=== PATIENT | male | born 1950 | race Caucasian/White ===

== ENCOUNTER → 2016-07-26 | Outpatient (CLI) | payer BC ==
[~2016-07-26] MED LIST: ASCO10003 PO; CHONCAP PO; DOXA4TAB2 PO; FLUT0.15 INH; LEVO75TA5 PO; SILD100T PO; TURM1CAP4 PO
[2016-07-26 15:19] LABS: BLOOD UREA NITROGEN 27 mg/dl (7-18); BUN/CREATININE RATIO 22.7 (10-20)
== END | disposition home or self-care (01) ==
LOC: C.LAB 13:20
PROVIDERS: ATTEND Urology
DX: R97.20 Elevated prostate specific antigen [PSA] (principal)

== ENCOUNTER → 2016-12-10 | Outpatient (CLI) | payer BC ==
[2016-12-10 11:04] LABS: ALT/SGPT 23 U/L (12-78); AST/SGOT 16 U/L (15-37); BLOOD UREA NITROGEN 27 mg/dl (7-18); BUN/CREATININE RATIO 20.4 (10-20); CARBON DIOXIDE 29 mmol/L (21-32); CHLORIDE 105 mmol/L (98-107); CHOLESTEROL 160 mg/dl (0-200); GLUCOSE 93 mg/dl (70-99); POTASSIUM 4.2 mmol/L (3.5-5.1); SODIUM 141 mmol/L (136-145)
[2016-12-10 11:12] LABS: ESTIMATED AVERAGE GLUCOSE 111 mg/dl; HA1C FLAG Normal (Normal)
[2016-12-10 11:17] LABS: ALB/GLOB RATIO 1.3 (0.9-2); ALKALINE PHOSPHATASE 64 U/L (45-117); HDL CHOLESTEROL 53 mg/dl; LDL CHOLESTEROL CALCULATED 100 mg/dl; TRIGLYCERIDES 35 mg/dl (0-150); VERY LOW DENSITY LIPOPROT CALC 7 mg/dl
== END | disposition home or self-care (01) ==
LOC: C.LABBC 08:25
PROVIDERS: ATTEND Internal Medicine
DX: E03.9 Hypothyroidism, unspecified (principal); R73.9 Hyperglycemia, unspecified; Z13.6 Encounter for screening for cardiovascular disorders

== ENCOUNTER → 2016-12-14 | Outpatient (CLI) | payer BC ==
--- NOTE | 2016-12-14 11:28 | DIAGNOSTIC IMAGING REPORT ---
THYROID ULTRASOUND HISTORY: [id number] THYROID NODULES COMPARISON: Thyroid ultrasound 04/22/2015. FINDINGS: Right lobe: 4.7 x 2.1 x 1.6 cm. There are few scattered hypoechoic nodules/cysts. Dominant nodule measures 8 mm. These are not significantly changed. Left lobe: 3.9 x 1.4 x 1.2 cm. There are few tiny hypoechoic nodules, unchanged. Isthmus: 4 mm in thickness. No nodules. IMPRESSION: No change in the subcentimeter bilateral thyroid nodules with the largest on the right measuring 8 mm. Electronically signed by: Ramsey Everett M.D. 12/14/2016 11:27 AM Dictated Date/Time: 12/14/2016 11:24 AM
== END | disposition home or self-care (01) ==
LOC: C.ULTR 10:44
PROVIDERS: ATTEND Internal Medicine
DX: E04.1 Nontoxic single thyroid nodule (principal)

== ENCOUNTER → 2017-04-08 | Outpatient (CLI) | payer BC | END | disposition home or self-care (01) | LOC: C.LAB 11:57 | PROVIDERS: ATTEND Internal Medicine | DX: E03.9 Hypothyroidism, unspecified (principal) ==

== ENCOUNTER → 2017-04-27 | Outpatient (CLI) | payer BC | END | disposition home or self-care (01) | LOC: C.LAB 10:46 | PROVIDERS: ATTEND Urology | DX: N40.0 Benign prostatic hyperplasia without lower urinary tract symptoms (principal); E78.5 Hyperlipidemia, unspecified ==

== ENCOUNTER → 2017-06-02 | Outpatient (CLI) | payer BC ==
[2017-06-02 12:40] LABS: ALT/SGPT 34 U/L (12-78); BLOOD UREA NITROGEN 24 mg/dl (7-18); CALCIUM 9.2 mg/dl (8.5-10.1); CARBON DIOXIDE 29 mmol/L (21-32); CHLORIDE 103 mmol/L (98-107); CHOLESTEROL 129 mg/dl (0-200); CREATININE 1.18 mg/dl (0.60-1.40); GLUCOSE 80 mg/dl (70-99); POTASSIUM 4.3 mmol/L (3.5-5.1); SODIUM 139 mmol/L (136-145); TRIGLYCERIDES 27 mg/dl (0-150); VERY LOW DENSITY LIPOPROT CALC 5 mg/dl
[2017-06-02 12:43] LABS: ALB/GLOB RATIO 1.5 (0.9-2); ALKALINE PHOSPHATASE 68 U/L (45-117); AST/SGOT 21 U/L (15-37); HDL CHOLESTEROL 63 mg/dl; LDL CHOLESTEROL CALCULATED 61 mg/dl
[2017-06-02 12:47] LABS: THYROID STIMULATING HORMONE 0.836 uIu/ml (0.300-4.500)
== END | disposition home or self-care (01) ==
LOC: C.LAB 10:46
PROVIDERS: ATTEND Physician Assistant Medical
DX: E03.9 Hypothyroidism, unspecified (principal)

== ENCOUNTER → 2017-08-02 | Outpatient (CLI) | payer BC | END | disposition home or self-care (01) | LOC: C.RDSM 08:25 | PROVIDERS: ATTEND Orthopaedic Surgery Sports Medicine | DX: R52 Pain, unspecified (principal) ==

== ENCOUNTER → 2017-11-01 | Outpatient (CLI) | payer BC | END | disposition home or self-care (01) | LOC: C.LAB1850 09:59 | PROVIDERS: ATTEND Urology | DX: N40.0 Benign prostatic hyperplasia without lower urinary tract symptoms (principal) ==

== ENCOUNTER 2020-03-12 12:27 | Inpatient (IN) ==
[2020-03-12] MEDS ORDERED: SODIUM CHLORIDE 0.9% 1000ML 1,000 ML IV ONE ×2 (12:51→13:02)
[2020-03-12] MEDS ORDERED: CEFEPIME 2,000 MG/20 ML VIAL IV STA (13:02)
[2020-03-12] MEDS ORDERED: DAPTOMYCIN IV ONE (13:02)
[2020-03-12] MEDS ORDERED: SODIUM CHLORIDE 0.9% 1000ML 250 ML IV ONE (13:02)
--- NOTE | 2020-03-12 13:26 | XRay Report ---
XR chest 1V portable HISTORY: 69 years-old Male SEPSIS acute sepsis COMPARISON: Chest CT 08/11/2015 TECHNIQUE: Portable AP view of the chest FINDINGS: Cardiac silhouette is mildly enlarged, unchanged. Mild linear subsegmental bibasilar opacities. No pn eumothorax, pleural effusion or overt pulmonary edema. Degenerative changes of the shoulders and spin e. Mild blunting of the right costophrenic angle. IMPRESSION: Linear bibasilar opacities suggest atelectasis. No airspace consolidation typical for pne umonia. ACT 112: Negative or not required by law. The above report was generated using voice recognition software. It may contain grammatical, syntax o r spelling errors. Electronically signed by: Abiodun Villasenor M.D. 03/12/2020 1:25 PM
[2020-03-12 13:35] LABS: INR 1.2 (0.9-1.1); Partial Thromboplastin Time 28.9 Seconds (21.0-31.0); Prothrombin Time 12.6 Seconds (9.0-12.0)
[2020-03-12 13:36] LABS: Hematocrit (blood only) 31.2 % (42-52); Hemoglobin 11.2 g/dL (14.0-18.0); Mean Corpuscular Hemoglobin 29.9 pg (25-34); Mean Corpuscular Hgb Conc 35.9 g/dL (32-36); Mean Corpuscular Volume 83.4 fL (80-100); Mean Platelet Volume 9.6 fL (7.4-10.4); Platelet Count 93 K/uL (130-400); RDW Standard Deviation 39.4 fL (36.4-46.3); Red Blood Count 3.74 M/uL (4.7-6.1); White Blood Count 0.44 K/uL (4.8-10.8)
[2020-03-12 13:40] LABS: Alanine Aminotransferase 15 U/L (12-78); Albumin Level 2.8 gm/dl (3.4-5.0); Aspartate Aminotransferase 15 U/L (15-37); BUN Creatinine Ratio 15.4 (10-20); Blood Urea Nitrogen 55 mg/dl (7-18); Calcium 7.8 mg/dl (8.5-10.1); Carbon Dioxide 19 mmol/L (21-32); Chloride 93 mmol/L (98-107); Creatinine Clr Calc Pharmacy 19.5 ml/min; Est GFR (African American) 18.7; Est GFR (Non-African American) 16.1; Glucose 113 mg/dl (70-99); Magnesium 1.8 mg/dl (1.8-2.4); Potassium 4.7 mmol/L (3.5-5.1); Sodium 126 mmol/L (136-145)
[2020-03-12 13:48] LABS: Alkaline Phosphatase 60 U/L (45-117); Bilirubin,Total 0.8 mg/dl (0.2-1); Creatine Kinase 54 U/L (39-308); Creatine Kinase MB < 1.0 ng/ml (0.5-3.6); Globulin 2.9 gm/dl (2.5-4.0); Total Protein 5.7 gm/dl (6.4-8.2); Troponin I < 0.015 ng/ml (0-0.045); Uric Acid 8.2 mg/dl (2.6-7.2)
--- NOTE | 2020-03-12 15:00 | History & Physical Report ---
Date of Service March 12, 2020 Assessment & Plan (1) Sepsis: Patient admitted with severe sepsis. Patient is neutropenic Cont cefepime and dapto awaiting cultures Elevated lactic acid BP soft in the 90s despite IVF. Antibiotics given. D/W her cancer doctor's PA: ok to hold ventoclax. His WBC was in the 4 range prior and even received stimulant (2) CLL (chronic lymphocytic leukemia): F/U with Onc at [facility]. (3) Benign prostatic hyperplasia with urinary obstruction: will hold doxazosin and finasteride for now. May restart in AM. (4) Chronic obstructive pulmonary disease: Stable will monitor (5) Dyslipidemia: holding statin (6) Neutropenic fever: dvt: scd History of Present Illness Chief Complaint: fever Primary Care Provider: Cash Pride MD 69 yo with h/o CLL, and receiving treatment. complainting of fever, low enegry since Tuesday. He reports intermittent fever on Tuesday at 102F and Tuesday at 101F. He repprts both fevers subisded on their own. He also reports having not urinated since Tuesday despite drinking 56 ounces of water at minimum a day. Once his was aware that he had not urinated he was brought in to the ER. Allergies Allergy/AdvReac Type Severity Reaction Status Date / Time almond Allergy Mild dry mouth Verified 01/16/20 10:55 Home Medications Home Medications Medication Instructions Recorded Confirmed Type vitamin B complex 1 tab PO DAILY #30 tab 01/08/19 03/12/20 Rx finasteride 5 mg tablet 5 mg PO DAILY #90 tab 07/19/19 03/12/20 Rx simvastatin 10 mg tablet 10 mg PO DAILY #30 tab 12/10/19 03/12/20 Rx doxazosin 4 mg tablet 4 mg PO DAILY #90 tab 01/16/20 03/12/20 Rx venetoclax 100 mg tablet 400 mg PO DAILY 300 Days #1200 tab 01/16/20 03/12/20 Rx levothyroxine 125 mcg tablet 125 mcg PO DAILY #90 tab 02/11/20 03/12/20 Rx obinutuzumab [Gazyva] 0 mg IV Q4WK 03/12/20 03/12/20 History Past Med/Surg History Medical History Actinic keratosis Acute urinary retention Allergic rhinitis 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 Chronic obstructive pulmonary disease Disc degeneration, lumbar Dyslipidemia Elevated prostate specific antigen (PSA) Elevated PSA H/O lymphoma History of basal cell carcinoma History of SCC (squamous cell carcinoma) of skin Hyperglycemia Hypothyroidism Inhibited sexual excitement Joint pain, knee Leukocytosis Lymphadenopathy Lymphoma, small lymphocytic Multinodular thyroid Need for hepatitis C screening test Organic impotence Right inguinal hernia Seborrheic keratosis Squamous cell carcinoma Tear meniscus knee Tubular adenoma of colon Surgical History H/O inguinal hernia repair H/O right inguinal hernia repair History of cholecystectomy S/P appendectomy Family History Father Cancer Mother Heart disease Denies family history of Ovarian cancer Prostate cancer Myocardial infarction Breast cancer Colorectal cancer Social History Smoking Status: Never smoker Age Started Using Tobacco: 15; Age Quit Using Tobacco: 22; packs per day: 0.5; Cigarettes Per Day: 2-3; Number of Years Since Quit: 47; Second Hand Exposure: No; Hx Alcohol Use: Yes Alcohol type: wine Alcohol Intake Frequency Comment: Up to 1 glass of wine per day. Hx Substance Use: No Preferred Language: Mongolian Communication Ability: Effective Visual Impairment: No Limitations Hearing Ability: Normal Platform Supervisor Required: No Beliefs That Will Affect Care: None marital status: Current Living Situation: Spouse current occupational status: retired current occupation: [employer] Other Information That Helps Us Care for You: No Feels Safe at Home: Yes Safety Concerns: Feels Safe At This Time Dental Care, Regularly: Yes Physical Activity Frequency: Daily Seatbelt Use: always Review of Systems Constitutional: + fever, + sweats (tuesday night up unil the fever broke), + fatigue and + weakness Eyes: no diplopia and no discharge Ear, Nose, Mouth, Throat: no tinnitus, no dizziness, no nasal congestion and no epistaxis Respiratory: + dyspnea on exertion (mild, lasted for weeks prior); no change in sputum and no dyspnea Cardiovascular: no chest pain and no orthopnea Gastrointestinal: + change in stools (diarrhea: watery (yesterday) 4-5 times (normal is once a day)) and + diarrhea/loose stools; no nausea, no vomiting and no blood in stools Genitourinary: + decreased urination (no uine sine tuesday -tuesday) Integumentary: no acne and no rash Neurologic: no falls (but lost balance when walkin o batroom.), no paralysis and no numbness Psychiatric: no hopelessness and no change in appetite Physical Exam 2 Constitutional: WD/WN, vitals as above Eyes: PERRL, conjunctivae normal, anicteric sclerae ENMT: external ear and nose normal, oropharynx normal Neck: trachea midline, no thyromegaly Respiratory: normal respiratory effort, lungs clear to auscultation Cardiovascular: RRR, no murmur, no edema Gastrointestinal (Abdomen): normal bowel sounds, soft, nontender, no hepatosplenomegaly Musculoskeletal: no cyanosis or clubbing, extremities motor strength 5/5 Neurologic: patellar DTR's 2+ bilat, sensation intact Psychiatric: A+Ox3, euthymic affect Lymphatic: no cervical or axillary lymphadenopathy Results & Data Results & Data ([facility]) Vital Signs (Past 12 Hours) Vital Signs Temp Pulse Resp BP Pulse Ox 03/12/20 14:01 79 23 03/12/20 14:00 79 23 97/67 L 03/12/20 13:32 79 23 03/12/20 13:30 78 22 93/59 L 03/12/20 13:25 18 96 03/12/20 12:38 37.5 C 87 18 91/60 L 97 PG Care Time/CCT Total # of Minutes Spent Total Time Spent with Patient: Total time spent is greater than 50% in coordination of care (as documented) at patient's floor/unit and/or counseling patient: Coding Level of Care Code 05899 Initial Inpt Care Lvl 3 Diagnoses Sepsis A41.9 CLL (chronic lymphocytic leukemia) C91.10 Benign prostatic hyperplasia with urinary obstruction N40.1; N13.8 Chronic obstructive pulmonary disease J44.9 Dyslipidemia E78.5 Neutropenic fever D70.9; R50.81
--- NOTE | 2020-03-12 15:14 | CT Scan Report ---
CT OF THE ABDOMEN AND PELVIS WITHOUT CONTRAST CLINICAL HISTORY: Acute renal failure. COMPARISON STUDY: Right inguinal ultrasound August 04, 2015. TECHNIQUE: Axial images of the abdomen and pelvis were obtained without IV contrast. Images were revi ewed in the axial, sagittal, and coronal planes. Automated exposure control was utilized for the gabriele dy. A dose lowering technique was utilized adhering to the principles of ALARA. FINDINGS: Imaged portions of the lower chest demonstrate a small hiatal hernia. There is ascites with in the hernia sac. Small right and trace left pleural effusions are noted. No pneumatosis, free air o r portal venous gas is present. Evaluation of the abdomen and pelvis is suboptimal on this unenhanced exam. Moderate splenomegaly has developed since chest CT August 2015. There is periportal edema. T here is evidence for volume overload with mesenteric infiltration and a small amount of ascites withi n the abdomen and pelvis. No hepatic lesions identified on this unenhanced exam. Unenhanced images of the adrenal glands, pancreas and right kidney are normal. A water attenuation lesion within the left renal pelvis was partially imaged on prior chest CT. This represents a parapelvic cyst. There is mil d left collecting system dilatation. There are no ureteral calculi. Prostate is moderately enlarged. Mild bladder wall thickening is noted. Colonic diverticulosis is noted without evidence for acute div erticulitis. Note is made of numerous enlarged abdominal and pelvic lymph nodes, including mesenteric , retroperitoneal and left pelvic sidewall nodes. Index left pelvic sidewall lymph node on image 347 of 446 measures 2.3 x 1.5 cm. Index right common iliac node on image 252 measures 2.4 x 1.7 cm. Index mesenteric node on image 178 measures 2 x 1.4 cm. Or may be an additional enlarged left iliac node s hown on axial image 339, suboptimally assessed on this unenhanced exam. There is no evidence for a cristela wel obstruction. There are no suspicious osseous lesions. IMPRESSION: 1. No urinary calculi. Mild left collecting system dilatation. Left renal parapelvic cyst. Moderate e nlargement of the prostate. Mild bladder wall thickening. 2. Numerous ill-defined enlarged abdominal and pelvic lymph nodes that measure up to 2.4 x 1.7 cm. In terval development of moderate splenomegaly since prior chest CT August 11, 2015. These findings bosch se the possibility of a lymphoproliferative process such as lymphoma. 3. Evidence for volume overload with small right and trace left pleural effusions, small amount of ab dominal and pelvic ascites, periportal edema and mesenteric infiltration. 4. No bowel obstruction. Colonic diverticulosis without evidence for acute diverticulitis. ACT 112: Positive. There are findings on this exam that require communication between the performing entity and the patient following Patient Test Result Information Act ([place] Act 112) guidelines. Electronically signed by: Johann Camargo M.D. 03/12/2020 3:13 PM
[2020-03-12] MEDS ORDERED: CEFEPIME CONSULT ACTIVE PRN (15:31)
[2020-03-12] MEDS ORDERED: DAPTOmycin 450 MG in SYRINGE 0 ML IV STA (15:34)
[2020-03-12 17:41] LABS: Appearance Urine Cloudy (Clear); Bacteria Urine Automated Negative (Negative); Bilirubin Urine Negative (Negative); Blood Urine Negative (Negative); Color Urine Dark Yellow; Epithelial Cell Urine Auto >30 /lpf (0-5); Glucose Urine UA Trace (Negative); Ketones Urine Negative (Negative); Leukocyte Esterase Urine Negative (Negative); Nitrite Urine Negative (Negative); Protein Urine 2+ (Negative); RBC Urine Automated 0-4 /hpf (0-4); Specific Gravity Urine 1.018 (1.000-1.030); Urobilinogen Urine Negative (Negative)
[2020-03-12] MEDS: LACTATED RINGER'S 1,000 ML IV SCH ×2 (18:59→23:01)
--- NOTE | 2020-03-12 19:25 | Electrocardiogram Report ---
Test Reason : Blood Pressure : / mmHG Vent. Rate : 078 BPM Atrial Rate : 078 BPM P-R Int : 180 ms QRS Dur : 078 ms QT Int : 322 ms P-R-T Axes : 074 062 013 degrees QTc Int : 367 ms Normal sinus rhythm Normal ECG When compared with ECG of 27-FEB-2019 03:51, ST no longer elevated in Anterior leads Confirmed by Cash Santos ([id number]) on 03/12/2020 7:25:39 PM Referred By: ED Confirmed By:Terrell Santos
[2020-03-12 19:45] LABS: BUN Creatinine Ratio 14.9 (10-20); Creatinine Clr Calc Pharmacy 18.2 ml/min; Est GFR (African American) 17.2; Est GFR (Non-African American) 14.8; Potassium 4.1 mmol/L (3.5-5.1)
[2020-03-13] MEDS: LEVOTHYROXINE SODIUM 125 MCG TABLET PO SCH (06:31)
[2020-03-13] MEDS: VITAMIN B COMPLEX TAB PO SCH (08:12)
[2020-03-13] MEDS: LACTATED RINGER'S 1,000 ML IV SCH (08:12)
[2020-03-13 08:18] LABS: Albumin Level 2.4 gm/dl (3.4-5.0); BUN Creatinine Ratio 17.9 (10-20); Calcium 8.6 mg/dl (8.5-10.1); Creatinine Clr Calc Pharmacy 19.2 ml/min; Est GFR (African American) 18.4; Est GFR (Non-African American) 15.9
[2020-03-13 08:21] LABS: Albumin Globulin Ratio 0.8 (0.9-2); Bilirubin,Total 0.7 mg/dl (0.2-1); Total Protein 5.4 gm/dl (6.4-8.2)
[2020-03-13 08:43] LABS: Hematocrit (blood only) 31.3 % (42-52); Mean Corpuscular Hemoglobin 29.3 pg (25-34); Mean Corpuscular Hgb Conc 35.1 g/dL (32-36); Mean Corpuscular Volume 83.2 fL (80-100); Mean Platelet Volume 10.4 fL (7.4-10.4); Platelet Count 93 K/uL (130-400); RDW Coefficient of Variation 12.7 % (11.5-14.5); RDW Standard Deviation 38.9 fL (36.4-46.3); Red Blood Count 3.76 M/uL (4.7-6.1); White Blood Count 0.77 K/uL (4.8-10.8)
[2020-03-13 09:01] LABS: Eosinophils # (auto) 0.06 K/uL (0-0.5); Eosinophils % (auto) 7.8 %; Lymphocytes # (auto) 0.28 K/uL (1.2-3.4); Lymphocytes % (auto) 36.4 %; Monocytes # (auto) 0.43 K/uL (0.11-0.59); Monocytes % (auto) 55.8 %
--- NOTE | 2020-03-13 10:11 | Hospitalist Progress Note ---
Date of Service March 13, 2020 Assessment & Plan (1) Neutropenic fever: Mr. Cope is a pleasant 69 yo male who was admitted to [facility] on 03/12/20 with neutropenic fever. He is currently undergoing chemotherapy with Dr. Haider at the [facility] with [facility] in [facility]. Patient's current chemotherapy regimen is as follows -- Venclexta po daily and Gazyva infusion q4 weeks. Just prior to admission, it was noted that patient had a fever x 2 days (102.8 F on 03/11/20 and 101.2 F on 03/12/20). Pt was also experiencing urinary retention x2 days and noted that he had not urinated since the evening of 03/11. He has had diarrhea x2 days but denies persistent diarrhea. Bacteremia with neutropenic fever - Pt admitted with severe sepsis - Started on daptomycin and cefepime IV at admission - Blood cultures taken -- 2/2 positive with gram negative bacilli -- will await speciation - Daptomycin discontinued 03/13 - Will start double gram negative coverage; consulted pharmacy 03/13 -- Continue cefepime IV x14 days and ciprofloxacin 400mg IV q24h (renal dosing) - Continue CBC qAM CLL (Chronic Lymphocytic Leukemia - Discussed case with patient's oncology PA, Melonie Storm - Will hold daily Venclexta 100mg (3 tablets) po daily - Will start neupogen at 300mcg SQ daily x4 days - F/u with oncologist at [facility] - Continue CBC qAM Acute Tubular Necrosis - Cr 3.63 today - Will restart doxazosin and finasteride for hx of BPH - 500 cc bolus IVF - Continue to monitor daily BMP Hemorrhoids - Patient using witch lefty pads with minimal relief - Hydrocortisone cream prn BID ordered BPH with urinary obstruction - Will continue home doxazosin and finasteride Dyslipidemia - Will hold simvastatin 10mg po daily at this time Hypothyroidism - Continue home levothyroxine 125 mcg COPD - Patient stable - Will continue to clinically monitor DVT Prophylaxis: FEN-GI: Full diet Dispo: Medsurg Code: DNR/DNI (2) CLL (chronic lymphocytic leukemia): (3) Benign prostatic hyperplasia with urinary obstruction: (4) Chronic obstructive pulmonary disease: (5) Dyslipidemia: (6) Bacteremia: (7) Hypothyroidism: (8) Acute tubular necrosis: (9) Hemorrhoid: Admission and Anticipated Discharge Date Admission Date: March 12, 2020 Supervising Physician Co-Signing Physician Notes Patient seen and examined with PGY-1 Dr. Lazo. Agree with history, exam findings, assessment and plan of care. In brief, Mr. Cope is a 69 year old male with history of CLL (being treated by Dr. Haider at [facility]), BPH, HLD admitted with neutropenic fever. He feels weak today, but his biggest complaint is new hemorrhoids. Reports these are very painful. Denies bleeding. He has not used any topical medications for the hemorrhoid. Also notes that in the last few days, has noticed some increased pain in his mouth. Does not have a port. Gets infusions with Dr. Haider in [place]. Each infusion is accompanied by antoinette. Last infusion was 4 weeks ago. VS, labs and imaging reviewed. Nursing notes reviewed. Ill appearing, but non-toxic. Heart with regular rate and rhythm. No murmur, rub or gallop. Lungs clear to auscultation throughout all lung pryor. No wheezes, ronchi or rales. Abdomen is nondistended, nontender. Rectal internal exam deferred given neutropenic state. External hemorrhoid inflammed without thrombosis. 1. gram negative bacteremia. No central line. Blood cultures growing gram neg bacilli. Unclear source. Continue cefepime. DC dapto. Start cipro for double gram neg coverage. 2. neutropenia. ANC 0. Neupogen today then again for the next two days. Monitor ANC. 3. CLL. Follows with Dr. Haider at [facility] in [place]. Holding daily venetoclax. 4. ATN. Cr 3.84 on admission-->3.6. 500mL bolus today. Continue to monitor for Cr and eGFR improvement. Other chronic issues stable. Dispo: pending clinical improvement. Subjective Patient is a 69 yo male who is currently admitted for neutropenic fever. He reports a hx of CLL that was initially diagnosed in 2016; he has been monitored by Dr. Haider, oncologist at [facility] in [place] ([address] In November of this year, he started treatment with Gazyva (obinutuzumab) 1000mg q4 weeks; he also takes Venclexta 100mg (3 tablets) daily. Patient notes that at his last two Gazyva infusions, he has also received Neulasta due to neutropenia. Patient tells me today that his primary oncology PA (who works with Dr. Haider) is Melonie Storm -- can be reached at [phone]; his primary oncology nurse is Mirella -- [phone]. Patient reports that on Tuesday, 3 days ago, he first noted a fever at home with a temperature of 102.8 F, taken orally. He had associated sweats and chills. On Tuesday, his temperature was 101.2 F, taken orally. On Tuesday, the patient's "fever broke" but he noted to his that he had not had any urinary output since Tuesday evening. The patient's then brought the patient to [facility] for further evaluation. Patient was seen and evaluated at bedside today. He reports that he overall feels fatigued and weak. He also complains of acute rectal pain and hemorrhoids; he notes that he has a remote hx of mild hemorrhoids but this current episode is the most severe. Patient did have several episodes of diarrhea x 2 days but he denies known rectal bleeding or blood in the stool; he has not had persistent diarrhea today. Patient has been tolerating food intake well without nausea or vomiting. He denies persistent fever, chills, or sweats. He also denies chest pain, SOB, abdominal pain, leg pain, or leg swelling. History: PMHx includes: CLL, hypothyroidism, BPH, hyperlipidemia, hernia; no hx of HTN, no hx of DM, no hx of CAD Surgical hx: cholecystectomy and appendectomy both ~40 years ago, multiple hernia repairs Allergies: NKDA Medications: Venclexta daily, Gazyva q4 weeks Review of Systems Constitutional: as per Subjective / HPI; no fever and no chills Respiratory: no cough and no dyspnea Cardiovascular: no chest pain Gastrointestinal: as per Subjective / HPI; no abdominal pain, no nausea and no vomiting Musculoskeletal: no swelling Physical Exam Physical Exam: GENERAL: No acute distress. Well developed and well nourished. Vital signs reviewed as above. A/O x3. EYES: EOMI. HENT: Moist mucous membranes. RESPIRATORY: Clear to auscultation bilaterally. No wheezing, rales, or rhonchi. CARDIOVASCULAR: Regular rate and rhythm. No murmurs. ABDOMEN: Soft, non-tender and non-distended. No palpable masses. Normal bowel sounds. RECTAL: Inflamed and erythematous external hemorrhoids without active bleeding. Digital rectal exam deferred due to neutropenic bacteremic state. EXTREMITIES: No edema. Non-tender. NEUROLOGIC: No focal neurological deficits. CN II-XII grossly intact, but not individually tested. PSYCHIATRIC: Cooperative. Appropriate mood and affect. Results & Data Results & Data ([facility]) Vital Signs (Past 12 Hours) Vital Signs Temp Pulse Pulse Pulse Resp BP Pulse Ox 03/13/20 07:37 76 03/13/20 07:04 36.6 C 80 18 104/69 96 03/13/20 03:33 36.5 C 81 16 109/71 99 03/12/20 23:59 88 03/12/20 23:45 36.4 C L 85 18 108/73 97
[2020-03-13] MEDS ORDERED: HYDROCORTISONE HC 2.5% CRM 30GM TUBE EXT PRN ×2 (11:22→12:09)
[2020-03-13] MEDS ORDERED: ACETAMINOPHEN 325 MG TAB PO PRN (11:49)
[2020-03-13] MEDS: CEFEPIME 2,000 MG in SYRINGE 7.5 ML IV SCH (13:03)
[2020-03-13] MEDS ORDERED: [UNRECOGNIZED DRUG - REMARK] PRN (13:10)
[2020-03-13] MEDS: CIPROFLOXACIN / D5W 400 MG/200 ML BAG IV SCH (13:30)
[2020-03-13] MEDS ORDERED: LACTATED RINGER'S 500 ML IV ONE (15:48)
[2020-03-13] MEDS: FILGRASTIM 300 MCG/ML VIAL SQ SCH (17:47)
[2020-03-13] MEDS: DOXAZosin MESYLATE 4 MG TAB PO SCH (20:38)
[2020-03-14] MEDS: LEVOTHYROXINE SODIUM 125 MCG TABLET PO SCH (06:15)
[2020-03-14] MEDS ORDERED: LEVOTHYROXINE SODIUM 125 MCG TABLET PO SCH (06:30)
[2020-03-14 07:27] LABS: Hematocrit (blood only) 29.3 % (42-52); Hemoglobin 10.3 g/dL (14.0-18.0); Mean Corpuscular Hemoglobin 29.3 pg (25-34); Mean Corpuscular Hgb Conc 35.2 g/dL (32-36); Mean Corpuscular Volume 83.5 fL (80-100); Mean Platelet Volume 10.4 fL (7.4-10.4); Platelet Count 112 K/uL (130-400); Red Blood Count 3.51 M/uL (4.7-6.1); White Blood Count 1.16 K/uL (4.8-10.8)
[2020-03-14 07:54] LABS: BUN Creatinine Ratio 21.7 (10-20); Calcium 8.5 mg/dl (8.5-10.1); Creatinine Clr Calc Pharmacy 23.3 ml/min; Est GFR (African American) 23.2; Est GFR (Non-African American) 20.1; Magnesium 2.3 mg/dl (1.8-2.4); Phosphorus 3.5 mg/dl (2.5-4.9); Potassium 3.3 mmol/L (3.5-5.1)
[2020-03-14] MEDS ORDERED: POTASSIUM CHLORIDE CRTAB 20 MEQ TABCR PO STA (07:59)
[2020-03-14 08:02] LABS: Eosinophils # (auto) 0.06 K/uL (0-0.5); Eosinophils % (auto) 5.2 %; Lymphocytes # (auto) 0.29 K/uL (1.2-3.4); Monocytes # (auto) 0.77 K/uL (0.11-0.59); Monocytes % (auto) 66.4 %; Neutrophils # (auto) 0.04 K/uL (1.4-6.5); Neutrophils % (auto) 3.4 %
[2020-03-14] MEDS: FINASTERIDE 5 MG TAB PO SCH (08:04)
[2020-03-14] MEDS: VITAMIN B COMPLEX TAB PO SCH (08:04)
[2020-03-14] MEDS: FILGRASTIM 300 MCG/ML VIAL SQ SCH (09:39)
--- NOTE | 2020-03-14 10:36 | Hospitalist Progress Note ---
Date of Service March 14, 2020 Assessment & Plan (1) Neutropenic fever: Mr. Cope is a pleasant 69 yo male who was admitted to [facility] on 03/12/20 with neutropenic fever. He is currently undergoing chemotherapy with Dr. Haider at the [facility] in [facility]. Patient's current chemotherapy regimen is as follows -- Venclexta po daily and Gazyva infusion q4 weeks. Just prior to admission, it was noted that patient had a fever x 2 days (102.8 F on 03/11/20 and 101.2 F on 03/12/20). Pt was also experiencing urinary retention x2 days and noted that he had not urinated since the evening of 03/11. He has had diarrhea x2 days but denies persistent diarrhea. Bacteremia with neutropenic fever - Pt admitted with severe sepsis - No clear source; no central line, no mediport - Started on daptomycin and cefepime IV at admission - Blood cultures taken -- 2/2 positive with gram negative bacilli -- will await speciation and sensitivities - Daptomycin discontinued 03/13 - Will start double gram negative coverage; consulted pharmacy 03/13 - Continue cefepime IV x14 days and ciprofloxacin 400mg IV q24h (renal dosing) - Continue CBC qAM Mouth Ulcers - Recommended that patient gargle with salt water - Viscous lidocaine ordered prn - Will continue to monitor CLL (Chronic Lymphocytic Leukemia - Discussed case with patient's oncology PA, Melonie Storm, on 03/13 - Will hold daily Venclexta 100mg (3 tablets) po daily - Will start neupogen at 300mcg SQ daily x4 days - F/u with oncologist at [facility] - Continue CBC qAM Acute Tubular Necrosis - Cr 2.99 today <-- 3.63 yesterday (03/13) <-- 3.84 (03/12) - 500 cc bolus IVF given 03/13 - Encourage increased fluid intake po for adequate hydration - Continue to monitor daily BMP Hemorrhoids - Patient using witch lefty pads with minimal relief - Hydrocortisone cream prn BID ordered - Will start patient on Colace and Miralax for bowel regimen BPH with urinary obstruction - Will continue home doxazosin and finasteride Dyslipidemia - Will hold simvastatin 10mg po daily at this time Hypothyroidism - Continue home levothyroxine 125 mcg COPD - Patient stable - Will continue to clinically monitor DVT Prophylaxis: FEN-GI: Full diet Dispo: Medsur Code: DNR/DNI (2) CLL (chronic lymphocytic leukemia): (3) Benign prostatic hyperplasia with urinary obstruction: (4) Chronic obstructive pulmonary disease: (5) Dyslipidemia: (6) Bacteremia: (7) Hypothyroidism: (8) Acute tubular necrosis: (9) Hemorrhoid: Admission and Anticipated Discharge Date Admission Date: March 12, 2020 Supervising Physician Co-Signing Physician Notes Attending attestation Pt seen and examined in concert with Dr. Lazo. In agreement with the documented findings as noted in the resident documentation with any exceptions or additions as noted here. 69 y/o male h/o [facility] ([facility] BPH, HLD p/w neutropenic fever Still c/o hemorrhoid with fecal hesitancy described, as well as apthous ulcers. On examination, S1/S2 nl RRR no MCG. CTAB. Abd NT/ND BS+ve Bacteremia in the setting of neutropenia - improved ANC today - continue neupogen for 1 more day. Follow up C/S. Continue cipro/cefepime IV. CLL - holding venetoclax MARKEL w/ ATN - improving Cr today to 2.99. Encourage PO hydration Else see resident documentation as noted. Subjective Patient was seen and evaluated at bedside this morning. He states that he overall feels "okay" but he does report some generalized weakness and fatigue. Patient also complains of sores in his mouth, notably on his tongue and inner lips. His most significant complaint this morning is his known external hemorrhoids; he reports persistent rectal pain that is exacerbated with movement. Patient denies any rectal bleeding. He has not had a bowel movement since admission to the hospital but does note that he has the urge to have a BM. Patient has been using the rectal hydrocortisone cream with minimal relief. Patient denies fever, chills, chest pain, SOB, abdominal pain, nausea, vomiting, or leg pain. He has been eating well and sleeping well. Review of Systems Constitutional: + fatigue and + weakness (generalized); no fever, no chills and no body aches Ear, Nose, Mouth, Throat: + mouth lesions Respiratory: no cough and no dyspnea Cardiovascular: no chest pain Gastrointestinal: + problem reported (hemorrhoids); no abdominal pain, no vomiting and no blood in stools Physical Exam Physical Exam: GENERAL: No acute distress. Well developed and well nourished. Vital signs reviewed as above. A/O x3. EYES: EOMI. HENT: Moist mucous membranes. 3 distinct ulcerations in the mouth; one on the right lateral mid tongue, one on the upper inner lip adjacent to the central incisors, and one on the lower inner lip adjacent to the central incisors. These ulcerations are tender to palpation and are without active bleeding. RESPIRATORY: Clear to auscultation bilaterally. No wheezing, rales, or rhonchi. CARDIOVASCULAR: Regular rate and rhythm. No murmurs. ABDOMEN: Soft, non-tender and non-distended. No palpable masses. Normal bowel sounds. RECTAL: Exam deferred today. Pt reports no rectal bleeding or bleeding from the external hemorrhoids. EXTREMITIES: No edema. Non-tender. NEUROLOGIC: No focal neurological deficits. PSYCHIATRIC: Cooperative. Appropriate mood and affect. Results & Data Results & Data ([facility]) Vital Signs (Past 12 Hours) Vital Signs Temp Pulse Pulse Resp BP Pulse Ox 03/14/20 07:23 36.8 C 75 18 109/64 96 03/14/20 03:14 36.4 C L 75 18 103/64 95 03/14/20 00:07 36.5 C 78 16 109/67 96 03/13/20 23:59 98 H Laboratory Results 03/14/20 03/14/20 Range/Units 06:42 06:42 WBC 1.16 L (4.8-10.8) K/uL RBC 3.51 L (4.7-6.1) M/uL Hgb 10.3 L (14.0-18.0) g/dL Hct 29.3 L (42-52) % MCV 83.5 (80-100) fL MCH 29.3 (25-34) pg MCHC 35.2 (32-36) g/dL RDW Std Deviation 39.0 (36.4-46.3) fL RDW Coeff of Alverto 13.0 (11.5-14.5) % Plt Count 112 L (130-400) K/uL MPV 10.4 (7.4-10.4) fL Immature Gran % (Auto) 0.0 % Neut % (Auto) 3.4 % Lymph % (Auto) 25.0 % [place] % (Auto) 66.4 % Eos % (Auto) 5.2 % Baso % (Auto) 0.0 % Neut # (Auto) 0.04 L* (1.4-6.5) K/uL Lymph # (Auto) 0.29 L (1.2-3.4) K/uL [place] # (Auto) 0.77 H (0.11-0.59) K/uL Eos # (Auto) 0.06 (0-0.5) K/uL Baso # (Auto) 0.00 (0-0.2) K/uL Immature Gran # (Auto) 0.00 (0.00-0.02) K/uL Sodium 134 L (136-145) mmol/L Potassium 3.3 L D (3.5-5.1) mmol/L Chloride 102 (98-107) mmol/L Carbon Dioxide 18 L (21-32) mmol/L Anion Gap 14.0 H (3-11) BUN 65 H (7-18) mg/dl Creatinine 2.99 H D (0.6-1.4) mg/dl Est Cr Clr Drug Dosing 23.3 ml/min Est GFR ( Amer) 23.2 Est GFR (Non-Af Amer) 20.1 BUN/Creatinine Ratio 21.7 H (10-20) Glucose 80 (70-99) mg/dl Calcium 8.5 (8.5-10.1) mg/dl Phosphorus 3.5 D (2.5-4.9) mg/dl Magnesium 2.3 (1.8-2.4) mg/dl
[2020-03-14] MEDS: DOCUSATE SODIUM 100 MG CAP PO SCH ×2 (11:14→20:55)
[2020-03-14] MEDS: POLYETHYLENE (MIRALAX) 17 GM PACK PO SCH (11:14)
[2020-03-14] MEDS: CIPROFLOXACIN / D5W 400 MG/200 ML BAG IV SCH (12:10)
[2020-03-14] MEDS: LIDOCAINE HCL VISCOUS SOLN 2% 15 ML UDC MT PRN (12:11)
[2020-03-14] MEDS: CEFEPIME 2,000 MG in SYRINGE 7.5 ML IV SCH (13:33)
[2020-03-14] MEDS ORDERED: DAPTOmycin 450 MG in SYRINGE 0 ML IV SCH (14:00)
[2020-03-14] MEDS: DOXAZosin MESYLATE 4 MG TAB PO SCH (20:57)
[2020-03-15 06:11] LABS: Hematocrit (blood only) 31.1 % (42-52); Hemoglobin 10.7 g/dL (14.0-18.0); Mean Corpuscular Hgb Conc 34.4 g/dL (32-36); Mean Corpuscular Volume 84.3 fL (80-100); Platelet Count 111 K/uL (130-400); RDW Coefficient of Variation 13.1 % (11.5-14.5); RDW Standard Deviation 40.1 fL (36.4-46.3); Red Blood Count 3.69 M/uL (4.7-6.1); White Blood Count 3.41 K/uL (4.8-10.8)
--- NOTE | 2020-03-15 06:25 | Hospitalist Progress Note ---
Date of Service March 15, 2020 Assessment & Plan (1) Neutropenic fever: 69 y/o M w/ hx of CLL on chemotherapy (follows [facility]), COPD, hypothyroidism who presents w/neutropenic fever. bacteremia w/ neutropenic fever, severe sepsis on admission - Dr. Haider at the [facility] with [facility] in [facility]. Patient's current chemotherapy regimen is as follows -- Venclexta po daily and Gazyva infusion q4 weeks. Priot to admission, F x 2d (102.8 F on 03/11/20 and 101.2 F on 03/12/20). - elevated lactate 2.6 on admission - No clear source; no central line, no mediport - Started on daptomycin and cefepime IV at admission. Daptomycin discontinued 03/13 - Blood cultures taken -- 2/2 positive with gram negative bacilli -- will await speciation and sensitivities - Will start double gram negative coverage; consulted pharmacy 03/13 - plan was cefepime IV x14 days and ciprofloxacin 400mg IV q24h (renal dosing). d/c'd IV cefepime (03/15) given that BC is pansensitive pseudomonas. Will consult pharmacy regarding possible PO options. - neutrophil count uptrending. 0.0 (03/13) -> 0.04 (03/14) -> 1.87 (03/15). - received day 3 of Neupogen. will discontinue given that he is no longer in neutropenic range and considering risks/benefits of the medication. - plan is to speak w/ oncology prior to patient dispo, tentatively 03/16/20. - check AM CBC, bmp, phos CLL (Chronic Lymphocytic Leukemia - Discussed case with patient's oncology PA, Melonie Storm, on 03/13 - Will hold daily Venclexta 100mg (3 tablets) po daily - F/u with oncologist at [facility]. CBC qAM Mouth Ulcers - Recommended that patient gargle with salt water - Viscous lidocaine ordered prn, helping a lot w/ sxs Acute Tubular Necrosis - Cr 2.99 (03/14) <-- 3.63 (03/13) <-- 3.84 (03/12) - Cr 2.21 (03/15). BUN 50 - 500 cc bolus IVF given 03/13 - Encourage increased fluid intake po for adequate hydration - Continue to monitor daily BMP Hemorrhoids - Patient using witch lefty pads with minimal relief - Hydrocortisone cream prn BID ordered - Colace and Miralax for bowel regimen BPH with urinary obstruction - continue home doxazosin and finasteride Dyslipidemia - hold simvastatin 10mg po daily Hypothyroidism - continue home levothyroxine 125 mcg COPD - patient stable, continue to monitor FENGI:dialysis renal diet DVT prophylaxis:SCDs Code status: DNR/DNI Dispo: PCU tele Admission and Anticipated Discharge Date Admission Date: March 12, 2020 Supervising Physician Co-Signing Physician Notes Attending attestation Pt seen and examined in concert with Dr. Ortiz. In agreement with the documented findings as noted in the resident documentation with any exceptions or additions as noted here. 69 y/o male h/o [facility] ([facility] BPH, HLD p/w neutropenic fever Reduced hemorrhoid complaint since addition of stool softeners. Resting comfortably otherwise. on review of history, did have urinary retention for upwards of 2 days immediately prior to admission. On examination, S1/S2 nl RRR no MCG. CTAB. Abd NT/ND BS+ve. No apparent breaks in skin, rashes, areas of TTP. Hemorrhoid appears inflamed and not exquisitely TTP on evaluation. CNII-XII grossly intact. Oral apthous ulcers of the tongue and mucosa without surrounding TTP or erythema. No palpable cervical CHART COLLECTOR appreciated. Nl external ear examination without pain w/ tragus movement. Bacteremia in the setting of neutropenia - improved ANC today - completed neupogen course. Alexis sensitive pseudomonas on BCx x 2 - transition to PO double coverage in AM for likely 2 wk course. Discussed at length with patient, will d/w patient's oncologist (called and left VM with my contact info) CLL - holding venetoclax, oncology as above MARKEL w/ ATN - Continues to improve. encourage hydration. Monitor. Else see resident documentation as noted. Subjective Patient is feeling slightly better. Main complain is his hemorrhoidal pain. The cream is helping. Mouth sores still bothering him, but the mouthwash yesterday helped a lot and is due to receive another treatment later this morning. Fatigue/weakness still there, but slightly improved. Chronic diarrhea, unchanged, not worsened. Review of Systems Review of Systems: Constitutional: Denies fever, chills, ENT: Denies sore throat Cardiovascular: Denies Chest pain Respiratory: Denies shortness of breath, cough, difficulty breathing Gastrointestinal: Denies abdominal pain, nausea, vomiting, constipation Genitourinary: Denies urinary symptoms including dysuria Neurological: Denies headache, numbness, tingling, focal weakness Physical Exam Physical Exam: General: A&Ox3. NAD. Cooperative. HEENT: Atraumatic, normocephalic. Pulm: CTAB. -wheezes, -rales, -rhonchi. No respiratory distress. Cardiac: RRR, -rg. 2/6 faint systolic murmur at aortic and tricuspid regions. No LE edema. Abdominal: Nontender, nondistended, soft. Results & Data Results & Data ([facility]) Vital Signs (Past 12 Hours) Vital Signs Temp Pulse Resp BP Pulse Ox 03/15/20 03:51 36.7 C 65 16 103/61 97 03/14/20 23:01 36.7 C 71 16 115/67 97 03/14/20 19:39 37.1 C 79 20 130/76 97 Resident Activity Tracking Resident Involvement: Resident Care Provided Care Provided: Adult Hospital Medicine
[2020-03-15] MEDS: LEVOTHYROXINE SODIUM 125 MCG TABLET PO SCH (06:30)
[2020-03-15 06:45] LABS: ALC (manual) 0.44 K/uL (1.2-3.4); ANC (manual) 1.87 K/uL (1.4-6.5); Dohle Bodies 1+; Eosinophils # (manual) 0.24 K/uL (0-0.5); Lymphocytes # (manual) 0.44 K/uL (1.2-3.4); Monocytes # (manual) 0.86 K/uL (0.11-0.59); Monocytes % (manual) 25.2 %; Neutrophils # (manual) 1.87 K/uL (1.4-6.5); Neutrophils % (manual) 54.8 %; Ovalocytes 1+; Toxic Granulation 1+
[2020-03-15 06:49] LABS: BUN Creatinine Ratio 22.7 (10-20); Calcium 8.6 mg/dl (8.5-10.1); Est GFR (African American) 33.5; Est GFR (Non-African American) 28.9; Magnesium 2.4 mg/dl (1.8-2.4); Phosphorus 2.5 mg/dl (2.5-4.9); Potassium 4.1 mmol/L (3.5-5.1)
[2020-03-15] MEDS: POLYETHYLENE (MIRALAX) 17 GM PACK PO SCH (08:09)
[2020-03-15] MEDS: FINASTERIDE 5 MG TAB PO SCH (08:09)
[2020-03-15] MEDS: VITAMIN B COMPLEX TAB PO SCH (08:09)
[2020-03-15] MEDS: DOCUSATE SODIUM 100 MG CAP PO SCH ×2 (08:09→19:43)
[2020-03-15] MEDS ORDERED: CIPROFLOXACIN CONSULT ACTIVE PRN (10:30)
[2020-03-15] MEDS: FILGRASTIM 300 MCG/ML VIAL SQ SCH (11:03)
[2020-03-15] MEDS: LIDOCAINE HCL VISCOUS SOLN 2% 15 ML UDC MT PRN (11:04)
[2020-03-15] MEDS: CIPROFLOXACIN / D5W 400 MG/200 ML BAG IV SCH ×2 (12:29→23:32)
[2020-03-15] MEDS: DOXAZosin MESYLATE 4 MG TAB PO SCH (19:44)
--- NOTE | 2020-03-16 05:14 | Emergency Department Note ---
History of Present Illness General Chief complaint: Urinary Symptoms Stated complaint: HAS URINATED IN 3 DAYS, FEVER, Time Seen by Provider: 03/12/20 12:48 Source: patient, RN notes reviewed and old records reviewed Mode of arrival: ambulatory Limitations: no limitations History of Present Illness Provider complaint: weakness Onset (ago): day(s) 2 Associated symptoms: + weakness Treatments prior to arrival: none This is a 69-year-old male who is being sent by his primary care physician for [facility] test however upon arrival to the area for testing the patient is extremely weak and decided to check into the emergency department instead. He is running a fever here however denies any fever or chills. His only complaint is that he is extremely weak. He is on chemotherapy for CLL. He has not taken anything for the fever today. Home Medications Home Medications Medication Instructions Recorded Confirmed Type vitamin B complex 1 tab PO DAILY #30 tab 01/08/19 03/12/20 Rx finasteride 5 mg tablet 5 mg PO DAILY #90 tab 07/19/19 03/12/20 Rx simvastatin 10 mg tablet 10 mg PO DAILY #30 tab 12/10/19 03/12/20 Rx doxazosin 4 mg tablet 4 mg PO DAILY #90 tab 01/16/20 03/12/20 Rx venetoclax 100 mg tablet 400 mg PO DAILY 300 Days #1200 tab 01/16/20 03/12/20 Rx levothyroxine 125 mcg tablet 125 mcg PO DAILY #90 tab 02/11/20 03/12/20 Rx obinutuzumab [Gazyva] 0 mg IV Q4WK 03/12/20 03/12/20 History Allergies Allergy/AdvReac Type Severity Reaction Status Date / Time almond Allergy Mild dry mouth Verified 01/16/20 10:55 Past Med/Surg History Medical History (Updated 03/16/20 @ 05:13 by Navjot Garber MD) Actinic keratosis Acute tubular necrosis Acute urinary retention Allergic rhinitis Bacteremia 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 Chronic obstructive pulmonary disease Disc degeneration, lumbar Dyslipidemia Elevated prostate specific antigen (PSA) Elevated PSA H/O lymphoma Hemorrhoid History of basal cell carcinoma History of SCC (squamous cell carcinoma) of skin Hyperglycemia Hypothyroidism Inhibited sexual excitement Joint pain, knee Leukocytosis Lymphadenopathy Lymphoma, small lymphocytic Multinodular thyroid Need for hepatitis C screening test Organic impotence Right inguinal hernia Seborrheic keratosis Squamous cell carcinoma Tear meniscus knee Tubular adenoma of colon Surgical History H/O inguinal hernia repair H/O right inguinal hernia repair History of cholecystectomy S/P appendectomy Family History Father Cancer Mother Heart disease Denies family history of Ovarian cancer Prostate cancer Myocardial infarction Breast cancer Colorectal cancer Social History Smoking Status: Never smoker Age Started Using Tobacco: 15; Age Quit Using Tobacco: 22; packs per day: 0.5; Cigarettes Per Day: 2-3; Number of Years Since Quit: 47; Second Hand Exposure: No; Hx Alcohol Use: Yes Alcohol type: wine Alcohol Intake Frequency Comment: Up to 1 glass of wine per day. Hx Substance Use: No Preferred Language: Kiswahili Communication Ability: Effective Visual Impairment: No Limitations Hearing Ability: Normal Wirer Required: No Beliefs That Will Affect Care: None marital status: Current Living Situation: Spouse current occupational status: retired current occupation: [employer] Other Information That Helps Us Care for You: No Feels Safe at Home: Yes Safety Concerns: Feels Safe At This Time Dental Care, Regularly: Yes Physical Activity Frequency: Daily Seatbelt Use: always Review of Systems A total of 10 systems reviewed and were otherwise negative Physical Exam VITAL SIGNS - Vital signs and nursing notes were reviewed. GENERAL - 69-year-old male appearing pale stated age who is in no acute distress. Communicates well with provider and answers questions appropriately. SKIN - Without rashes. HEAD - NC/AT. EYES - PERRL with EOMI bilaterally. Sclera anicteric. Palpebral conjunctiva pink and moist with no injection noted. EARS - No deformities of external structures noted on gross examination bilaterally. No pain elicited with palpation of the tragus bilaterally. External auditory canals without discharge or otorrhea. Tympanic membranes pearly byrd without retraction or bulging. No fluid or purulent material visualized behind the TM. Handle of malleus, umbo, cone of light, pars tensa/flaccid all easily visualized. NOSE - Midline and without cyanosis. No epistaxis or purulent drainage noted. Septum midline without deviation or septal hematoma noted. MOUTH/OROPHARYNX - Without perioral cyanosis. Buccal mucosa pink and moist and without leukoplakia. Tongue midline with equal elevation of palate bilaterally. No tonsillar hypertrophy, erythema, or exudates noted. dentition noted. NECK - Neck with FROM. Supple to palpation. lymphadenopathy noted. No nuchal rigidity. LUNGS - Chest wall symmetric without accessory muscle use, intercostals retractions, or central cyanosis. Normal vesicular breath sounds CTA B/L. No wheezes, rales, or rhonchi appreciated. CARDIAC - RRR with S1/S2. No murmur, rubs, or gallops appreciated. ABDOMEN - Abdominal contour without pulsations or visible masses. BS normoactive all four quadrants. No tenderness, palpable masses, hepatosplenomegaly, or ascites noted. EXTREMITIES - No clubbing or peripheral cyanosis. No pretibial edema present. +3/5 radial, posterior tibial, and dorsalis pedis pulses palpated throughout. +5/5 strength noted in UE/LE bilaterally. NEUROLOGIC - Cranial nerves II through XII grossly intact. Sensory intact to light touch throughout. Patellar reflexes +2/4. PSYCH - A&Ox3 and cooperates fully with examiner. Pt is very pleasant and interacts well with examiner. Course Administered Medications Acetaminophen (Acetaminophen 325 Mg Tab) 650 mg PO Q4H PRN PRN Reason: pain/fever Stop: 04/12/20 11:48 Last Admin: 03/13/20 12:35 Dose: 650 mg Documented by: [id number] Docusate Sodium (Docusate Sodium 100 Mg Cap) 100 mg PO BID [facility] Stop: 04/13/20 10:29 Last Admin: 03/15/20 19:43 Dose: Not Given Documented by: [id number] Admin: 03/15/20 08:09 Dose: 100 mg Documented by: [id number] Admin: 03/14/20 20:55 Dose: Not Given Documented by: [id number] Admin: 03/14/20 11:14 Dose: 100 mg Documented by: [id number] Doxazosin Mesylate (Doxazosin Mesylate 4 Mg Tab) 4 mg PO HS MIKE Stop: 04/12/20 20:59 Last Admin: 03/15/20 19:44 Dose: 4 mg Documented by: [id number] Admin: 03/14/20 20:57 Dose: 4 mg Documented by: [id number] Admin: 03/13/20 20:38 Dose: 4 mg Documented by: [id number] Finasteride (Finasteride 5 Mg Tab) 5 mg PO QAM MIKE Stop: 04/13/20 08:59 Last Admin: 03/15/20 08:09 Dose: 5 mg Documented by: [id number] Admin: 03/14/20 08:04 Dose: 5 mg Documented by: [id number] Ciprofloxacin (Cipro / D5w) 400 mg in 200 mls @ 100 mls/hr IV Q12 MIKE; Protocol Stop: 03/29/20 22:59 Last Infusion: 03/16/20 02:20 Dose: 0 mls/hr Documented by: [id number] Admin: 03/15/20 23:32 Dose: 100 mls/hr Documented by: [id number] Levothyroxine Sodium (Levothyroxine Sodium 125 Mcg Tablet) 125 mcg PO DAILYBB [facility] Stop: 04/12/20 06:29 Last Admin: 03/15/20 06:30 Dose: 125 mcg Documented by: [id number] Admin: 03/14/20 06:15 Dose: 125 mcg Documented by: [id number] Admin: 03/13/20 06:31 Dose: 125 mcg Documented by: [id number] Lidocaine HCl (Lidocaine Hcl Viscous Soln 2% 15 Ml Udc) 15 ml MT PRN PRN PRN Reason: oral lesions Stop: 04/13/20 10:17 Last Admin: 03/15/20 11:04 Dose: 15 ml Documented by: [id number] Admin: 03/14/20 12:11 Dose: 15 ml Documented by: [id number] Polyethylene Glycol (Polyethylene (Miralax) 17 Gm Pack) 17 gm PO DAILY MIKE Stop: 04/13/20 10:29 Last Admin: 03/15/20 08:09 Dose: 17 gm Documented by: [id number] Admin: 03/14/20 11:14 Dose: 17 gm Documented by: [id number] Vitamin B Complex (Vitamin B Complex Tab) 1 tab PO DAILY MIKE Stop: 04/12/20 08:59 Last Admin: 03/15/20 08:09 Dose: 1 tab Documented by: [id number] Admin: 03/14/20 08:04 Dose: 1 tab Documented by: [id number] Admin: 03/13/20 08:12 Dose: 1 tab Documented by: [id number] Discontinued Medications Filgrastim (Filgrastim 300 Mcg/Ml Vial) 300 mcg SQ DAILY MIKE Stop: 03/16/20 15:29 Last Admin: 03/15/20 11:03 Dose: 300 mcg Documented by: [id number] Admin: 03/14/20 09:39 Dose: 300 mcg Documented by: [id number] Admin: 03/13/20 17:47 Dose: 300 mcg Documented by: [id number] Sodium Chloride (Nss 1000ml) 1,000 mls @ 999 mls/hr IV .Q1H1M ONE Stop: 03/12/20 13:51 Last Infusion: 03/12/20 14:41 Dose: 0 mls/hr Documented by: [id number] Admin: 03/12/20 13:16 Dose: 999 mls/hr Documented by: [id number] Sodium Chloride (Nss 1000ml) 250 mls @ 999 mls/hr IV .Q16M ONE Stop: 03/12/20 13:17 Last Infusion: 03/12/20 13:41 Dose: 0 mls/hr Documented by: [id number] Admin: 03/12/20 13:16 Dose: 999 mls/hr Documented by: [id number] Sodium Chloride (Nss 1000ml) 1,000 mls @ 999 mls/hr IV .Q1H1M ONE Stop: 03/12/20 14:02 Last Infusion: 03/12/20 14:41 Dose: 0 mls/hr Documented by: [id number] Admin: 03/12/20 13:16 Dose: 999 mls/hr Documented by: [id number] Cefepime HCl (Maxipime) 2,000 mg in 20 mls @ 5 mls/min IV NOW STA; Protocol Stop: 03/12/20 13:05 Last Admin: 03/12/20 14:00 Dose: 5 mls/min Documented by: [id number] Daptomycin 435 mg/ Syringe 8.7 mls @ 4.35 mls/min IV NOW ONE; Protocol Stop: 03/12/20 13:03 Last Admin: 03/12/20 14:00 Dose: 4.35 mls/min Documented by: [id number] Lactated Ringer's (Lr) 1,000 mls @ 100 mls/hr IV .Q10H MIKE Stop: 03/13/20 11:14 Last Infusion: 03/13/20 20:37 Dose: 0 mls/hr Documented by: [id number] Admin: 03/13/20 08:12 Dose: 100 mls/hr Documented by: [id number] Infusion: 03/13/20 08:12 Dose: 100 mls/hr Documented by: [id number] Admin: 03/12/20 23:01 Dose: 100 mls/hr Documented by: [id number] Admin: 03/12/20 18:59 Dose: Not Given Documented by: [id number] Daptomycin 450 mg/ Syringe 9 mls @ 4.5 mls/min IV ONE STA; Protocol Stop: 03/12/20 15:35 Last Admin: 03/12/20 15:40 Dose: Not Given Documented by: [id number] Cefepime HCl 2,000 mg/ Syringe 20 mls @ 5 mls/min IV Q24H MIKE Stop: 03/27/20 13:59 Last Admin: 03/14/20 13:33 Dose: 5 mls/min Documented by: [id number] Admin: 03/13/20 13:03 Dose: 5 mls/min Documented by: [id number] Ciprofloxacin (Cipro / D5w) 400 mg in 200 mls @ 100 mls/hr IV DAILY@1200 MIKE; Protocol Stop: 03/15/20 15:00 Last Infusion: 03/15/20 14:49 Dose: 0 mls/hr Documented by: [id number] Admin: 03/15/20 12:29 Dose: 100 mls/hr Documented by: [id number] Infusion: 03/14/20 14:38 Dose: 0 mls/hr Documented by: [id number] Admin: 03/14/20 12:10 Dose: 100 mls/hr Documented by: [id number] Infusion: 03/13/20 15:59 Dose: 0 mls/hr Documented by: [id number] Admin: 03/13/20 13:30 Dose: 100 mls/hr Documented by: [id number] Lactated Ringer's (Lr) 500 mls @ 999 mls/hr IV .Q31M ONE Stop: 03/13/20 16:18 Last Admin: 03/13/20 16:19 Dose: Not Given Documented by: [id number] Potassium Chloride (Potassium Chloride 20 Meq Tabcr) 40 meq PO NOW STA Stop: 03/14/20 08:00 Last Admin: 03/14/20 08:08 Dose: 40 meq Documented by: [id number] Critical Care Time I have personally spent greater than 90 minutes of critical care time in the direct management of this patient. This includes bedside care, interpretation of diagnostic studies, and testing, discussion with consultants, patient, and family members, and other required patient management activities. This 90 minutes is in excess of all separately billable procedures. Medical Decision Making Differential Diagnosis Sepsis, UTI, pneumonia, metabolic, electrolyte abnormalities, cardiac sources, intracerebral event, toxicologic, neurologic, as well as other pathologies. Medical Records Attestation: I reviewed the patient's medical records. Home Medications Current Medication List: was personally reviewed by me Laboratory Data Attestation: I reviewed the patient's lab results. Result diagrams: 03/15/20 05:21 03/15/20 05:21 Lab Results 03/12/20 03/12/20 03/12/20 Range/Units 13:07 13:07 13:07 WBC 0.44 L* (4.8-10.8) K/uL RBC 3.74 L (4.7-6.1) M/uL Hgb 11.2 L (14.0-18.0) g/dL Hct 31.2 L (42-52) % MCV 83.4 (80-100) fL MCH 29.9 (25-34) pg MCHC 35.9 (32-36) g/dL RDW Std Deviation 39.4 (36.4-46.3) fL RDW Coeff of Alverto 13.0 (11.5-14.5) % Plt Count 93 L (130-400) K/uL MPV 9.6 (7.4-10.4) fL Immature Gran % (Auto) Cancelled Neut % (Auto) Cancelled Lymph % (Auto) Cancelled Crisp % (Auto) Cancelled Eos % (Auto) Cancelled Baso % (Auto) Cancelled Neut # (Auto) Cancelled Lymph # (Auto) Cancelled Crisp # (Auto) Cancelled Eos # (Auto) Cancelled Baso # (Auto) Cancelled Immature Gran # (Auto) Cancelled Neutrophils % (Manual) Cancelled Band Neutrophils % Cancelled Lymphocytes % (Manual) Cancelled Prolymphocyte % Cancelled Reactive Lymphs % (Man) Cancelled Monocytes % (Manual) Cancelled Eosinophils % (Manual) Cancelled Basophils % (Manual) Cancelled Metamyelocytes % (Man) Cancelled Myelocytes % (Man) Cancelled Promyelocytes % (Man) Cancelled Blast Cells % (Manual) Cancelled Plasma Cell % (Manual) Cancelled Other Cells % Cancelled Nucleated RBC % Cancelled Neutrophils # (Manual) Cancelled Band Neutrophils # Cancelled Total Absolute Neuts Cancelled Lymphocytes # (Manual) Cancelled Prolymphocyte # Cancelled Reactive Lymphs # Cancelled Total Abs Lymphocytes Cancelled Monocytes # (Manual) Cancelled Eosinophils # (Manual) Cancelled Basophils # (Manual) Cancelled Metamyelocytes # (Man) Cancelled Myelocytes # (Manual) Cancelled Promyelocytes # (Man) Cancelled Blast Cells # (Man) Cancelled Plasma Cell # (Manual) Cancelled Other Cells # Cancelled Nucleated RBCs # (Man) Cancelled Hypersegmented Neuts Cancelled Hyposegmented Neuts Cancelled Hypogranular Neuts Cancelled Large Granular Lymphs Cancelled # Lrg Granular Lymphs Cancelled Hairy Cells Cancelled Smudge Cells Cancelled Toxic Granulation Cancelled Toxic Vacuolation Cancelled Dohle Bodies Cancelled Josie Rods Cancelled Hypogranular Platelets Cancelled Clumped Platelets Cancelled Giant Platelets Cancelled Platelet Satelliting Cancelled RBC Morphology Cancelled Polychromasia Cancelled Hypochromasia Cancelled Poikilocytosis Cancelled Basophilic Stippling Cancelled Anisocytosis Cancelled Microcytosis Cancelled Macrocytosis Cancelled Spherocytes Cancelled Pappenheimer Bodies Cancelled Sickle Cells Cancelled Target Cells Cancelled Tear Drop Cells Cancelled Ovalocytes Cancelled Stomatocytes Cancelled [place] Bodies Cancelled Echinocytes Cancelled Acanthocytes (Spur) Cancelled Rouleaux Cancelled RBC Agglutinates Cancelled Schistocytes Cancelled RBC Morph Comment Cancelled ESR (0-14) mm/hr Sezary Cell Cancelled PT 12.6 H (9.0-12.0) Seconds INR 1.2 H (0.9-1.1) APTT 28.9 (21.0-31.0) Seconds PTT Ratio 1.0 Sodium 126 L (136-145) mmol/L Potassium 4.7 (3.5-5.1) mmol/L Chloride 93 L (98-107) mmol/L Carbon Dioxide 19 L (21-32) mmol/L Anion Gap 14.0 H (3-11) BUN 55 H (7-18) mg/dl Creatinine 3.58 H (0.6-1.4) mg/dl Est Cr Clr Drug Dosing 19.5 ml/min Est GFR ( Amer) 18.7 Est GFR (Non-Af Amer) 16.1 BUN/Creatinine Ratio 15.4 (10-20) Glucose 113 H (70-99) mg/dl Lactate (0.4-2.0) mmol/L Uric Acid 8.2 H (2.6-7.2) mg/dl Calcium 7.8 L (8.5-10.1) mg/dl Phosphorus 5.0 H (2.5-4.9) mg/dl Magnesium 1.8 (1.8-2.4) mg/dl Total Bilirubin 0.8 (0.2-1) mg/dl AST 15 (15-37) U/L ALT 15 (12-78) U/L Alkaline Phosphatase 60 (45-117) U/L Lactate Dehydrogenase (87-241) U/L Total Creatine Kinase 54 (39-308) U/L CK-MB (CK-2) < 1.0 (0.5-3.6) ng/ml CK/CKMB % Calc TNP Troponin I < 0.015 (0-0.045) ng/ml C-Reactive Protein 24.50 H (0-0.29) mg/dl Total Protein 5.7 L (6.4-8.2) gm/dl Albumin 2.8 L (3.4-5.0) gm/dl Globulin 2.9 (2.5-4.0) gm/dl Albumin/Globulin Ratio 1.0 (0.9-2) Procalcitonin (0-0.5) ng/ml COVID-19 Eval Order COVID-19 PCR (Negative) Hepatitis C Ab Screen (Neg) 03/12/20 03/12/20 03/12/20 Range/Units 13:07 13:07 13:07 WBC (4.8-10.8) K/uL RBC (4.7-6.1) M/uL Hgb (14.0-18.0) g/dL Hct (42-52) % MCV (80-100) fL MCH (25-34) pg MCHC (32-36) g/dL RDW Std Deviation (36.4-46.3) fL RDW Coeff of Alverto (11.5-14.5) % Plt Count (130-400) K/uL MPV (7.4-10.4) fL Immature Gran % (Auto) Neut % (Auto) Lymph % (Auto) Crisp % (Auto) Eos % (Auto) Baso % (Auto) Neut # (Auto) Lymph # (Auto) Crisp # (Auto) Eos # (Auto) Baso # (Auto) Immature Gran # (Auto) Neutrophils % (Manual) Band Neutrophils % Lymphocytes % (Manual) Prolymphocyte % Reactive Lymphs % (Man) Monocytes % (Manual) Eosinophils % (Manual) Basophils % (Manual) Metamyelocytes % (Man) Myelocytes % (Man) Promyelocytes % (Man) Blast Cells % (Manual) Plasma Cell % (Manual) Other Cells % Nucleated RBC % Neutrophils # (Manual) Band Neutrophils # Total Absolute Neuts Lymphocytes # (Manual) Prolymphocyte # Reactive Lymphs # Total Abs Lymphocytes Monocytes # (Manual) Eosinophils # (Manual) Basophils # (Manual) Metamyelocytes # (Man) Myelocytes # (Manual) Promyelocytes # (Man) Blast Cells # (Man) Plasma Cell # (Manual) Other Cells # Nucleated RBCs # (Man) Hypersegmented Neuts Hyposegmented Neuts Hypogranular Neuts Large Granular Lymphs # Lrg Granular Lymphs Hairy Cells Smudge Cells Toxic Granulation Toxic Vacuolation Dohle Bodies Josie Rods Hypogranular Platelets Clumped Platelets Giant Platelets Platelet Satelliting RBC Morphology Polychromasia Hypochromasia Poikilocytosis Basophilic Stippling Anisocytosis Microcytosis Macrocytosis Spherocytes Pappenheimer Bodies Sickle Cells Target Cells Tear Drop Cells Ovalocytes Stomatocytes [place] Bodies Echinocytes Acanthocytes (Spur) Rouleaux RBC Agglutinates Schistocytes RBC Morph Comment ESR 20 H (0-14) mm/hr Sezary Cell PT (9.0-12.0) Seconds INR (0.9-1.1) APTT (21.0-31.0) Seconds PTT Ratio Sodium (136-145) mmol/L Potassium (3.5-5.1) mmol/L Chloride (98-107) mmol/L Carbon Dioxide (21-32) mmol/L Anion Gap (3-11) BUN (7-18) mg/dl Creatinine (0.6-1.4) mg/dl Est Cr Clr Drug Dosing ml/min Est GFR ( Amer) Est GFR (Non-Af Amer) BUN/Creatinine Ratio (10-20) Glucose (70-99) mg/dl Lactate 2.6 H* (0.4-2.0) mmol/L Uric Acid (2.6-7.2) mg/dl Calcium (8.5-10.1) mg/dl Phosphorus (2.5-4.9) mg/dl Magnesium (1.8-2.4) mg/dl Total Bilirubin (0.2-1) mg/dl AST (15-37) U/L ALT (12-78) U/L Alkaline Phosphatase (45-117) U/L Lactate Dehydrogenase (87-241) U/L Total Creatine Kinase (39-308) U/L CK-MB (CK-2) (0.5-3.6) ng/ml CK/CKMB % Calc Troponin I (0-0.045) ng/ml C-Reactive Protein (0-0.29) mg/dl Total Protein (6.4-8.2) gm/dl Albumin (3.4-5.0) gm/dl Globulin (2.5-4.0) gm/dl Albumin/Globulin Ratio (0.9-2) Procalcitonin 27.12 H (0-0.5) ng/ml COVID-19 Eval Order COVID-19 PCR (Negative) Hepatitis C Ab Screen (Neg) 03/12/20 03/12/20 03/12/20 Range/Units 13:07 13:07 13:30 WBC (4.8-10.8) K/uL RBC (4.7-6.1) M/uL Hgb (14.0-18.0) g/dL Hct (42-52) % MCV (80-100) fL MCH (25-34) pg MCHC (32-36) g/dL RDW Std Deviation (36.4-46.3) fL RDW Coeff of Alverto (11.5-14.5) % Plt Count (130-400) K/uL MPV (7.4-10.4) fL Immature Gran % (Auto) Neut % (Auto) Lymph % (Auto) Crisp % (Auto) Eos % (Auto) Baso % (Auto) Neut # (Auto) Lymph # (Auto) Crisp # (Auto) Eos # (Auto) Baso # (Auto) Immature Gran # (Auto) Neutrophils % (Manual) Band Neutrophils % Lymphocytes % (Manual) Prolymphocyte % Reactive Lymphs % (Man) Monocytes % (Manual) Eosinophils % (Manual) Basophils % (Manual) Metamyelocytes % (Man) Myelocytes % (Man) Promyelocytes % (Man) Blast Cells % (Manual) Plasma Cell % (Manual) Other Cells % Nucleated RBC % Neutrophils # (Manual) Band Neutrophils # Total Absolute Neuts Lymphocytes # (Manual) Prolymphocyte # Reactive Lymphs # Total Abs Lymphocytes Monocytes # (Manual) Eosinophils # (Manual) Basophils # (Manual) Metamyelocytes # (Man) Myelocytes # (Manual) Promyelocytes # (Man) Blast Cells # (Man) Plasma Cell # (Manual) Other Cells # Nucleated RBCs # (Man) Hypersegmented Neuts Hyposegmented Neuts Hypogranular Neuts Large Granular Lymphs # Lrg Granular Lymphs Hairy Cells Smudge Cells Toxic Granulation Toxic Vacuolation Dohle Bodies Josie Rods Hypogranular Platelets Clumped Platelets Giant Platelets Platelet Satelliting RBC Morphology Polychromasia Hypochromasia Poikilocytosis Basophilic Stippling Anisocytosis Microcytosis Macrocytosis Spherocytes Pappenheimer Bodies Sickle Cells Target Cells Tear Drop Cells Ovalocytes Stomatocytes [place] Bodies Echinocytes Acanthocytes (Spur) Rouleaux RBC Agglutinates Schistocytes RBC Morph Comment ESR (0-14) mm/hr Sezary Cell PT (9.0-12.0) Seconds INR (0.9-1.1) APTT (21.0-31.0) Seconds PTT Ratio Sodium (136-145) mmol/L Potassium (3.5-5.1) mmol/L Chloride (98-107) mmol/L Carbon Dioxide (21-32) mmol/L Anion Gap (3-11) BUN (7-18) mg/dl Creatinine (0.6-1.4) mg/dl Est Cr Clr Drug Dosing ml/min Est GFR ( Amer) Est GFR (Non-Af Amer) BUN/Creatinine Ratio (10-20) Glucose (70-99) mg/dl Lactate (0.4-2.0) mmol/L Uric Acid (2.6-7.2) mg/dl Calcium (8.5-10.1) mg/dl Phosphorus (2.5-4.9) mg/dl Magnesium (1.8-2.4) mg/dl Total Bilirubin (0.2-1) mg/dl AST (15-37) U/L ALT (12-78) U/L Alkaline Phosphatase (45-117) U/L Lactate Dehydrogenase 148 (87-241) U/L Total Creatine Kinase (39-308) U/L CK-MB (CK-2) (0.5-3.6) ng/ml CK/CKMB % Calc Troponin I (0-0.045) ng/ml C-Reactive Protein (0-0.29) mg/dl Total Protein (6.4-8.2) gm/dl Albumin (3.4-5.0) gm/dl Globulin (2.5-4.0) gm/dl Albumin/Globulin Ratio (0.9-2) Procalcitonin (0-0.5) ng/ml COVID-19 Eval Order Covid19 Done at [facility] COVID-19 PCR (Negative) Hepatitis C Ab Screen Neg (Neg) 03/12/20 03/12/20 Range/Units 13:30 15:30 WBC (4.8-10.8) K/uL RBC (4.7-6.1) M/uL Hgb (14.0-18.0) g/dL Hct (42-52) % MCV (80-100) fL MCH (25-34) pg MCHC (32-36) g/dL RDW Std Deviation (36.4-46.3) fL RDW Coeff of Alverto (11.5-14.5) % Plt Count (130-400) K/uL MPV (7.4-10.4) fL Immature Gran % (Auto) Neut % (Auto) Lymph % (Auto) Crisp % (Auto) Eos % (Auto) Baso % (Auto) Neut # (Auto) Lymph # (Auto) Crisp # (Auto) Eos # (Auto) Baso # (Auto) Immature Gran # (Auto) Neutrophils % (Manual) Band Neutrophils % Lymphocytes % (Manual) Prolymphocyte % Reactive Lymphs % (Man) Monocytes % (Manual) Eosinophils % (Manual) Basophils % (Manual) Metamyelocytes % (Man) Myelocytes % (Man) Promyelocytes % (Man) Blast Cells % (Manual) Plasma Cell % (Manual) Other Cells % Nucleated RBC % Neutrophils # (Manual) Band Neutrophils # Total Absolute Neuts Lymphocytes # (Manual) Prolymphocyte # Reactive Lymphs # Total Abs Lymphocytes Monocytes # (Manual) Eosinophils # (Manual) Basophils # (Manual) Metamyelocytes # (Man) Myelocytes # (Manual) Promyelocytes # (Man) Blast Cells # (Man) Plasma Cell # (Manual) Other Cells # Nucleated RBCs # (Man) Hypersegmented Neuts Hyposegmented Neuts Hypogranular Neuts Large Granular Lymphs # Lrg Granular Lymphs Hairy Cells Smudge Cells Toxic Granulation Toxic Vacuolation Dohle Bodies Josie Rods Hypogranular Platelets Clumped Platelets Giant Platelets Platelet Satelliting RBC Morphology Polychromasia Hypochromasia Poikilocytosis Basophilic Stippling Anisocytosis Microcytosis Macrocytosis Spherocytes Pappenheimer Bodies Sickle Cells Target Cells Tear Drop Cells Ovalocytes Stomatocytes [place] Bodies Echinocytes Acanthocytes (Spur) Rouleaux RBC Agglutinates Schistocytes RBC Morph Comment ESR (0-14) mm/hr Sezary Cell PT (9.0-12.0) Seconds INR (0.9-1.1) APTT (21.0-31.0) Seconds PTT Ratio Sodium (136-145) mmol/L Potassium (3.5-5.1) mmol/L Chloride (98-107) mmol/L Carbon Dioxide (21-32) mmol/L Anion Gap (3-11) BUN (7-18) mg/dl Creatinine (0.6-1.4) mg/dl Est Cr Clr Drug Dosing ml/min Est GFR ( Amer) Est GFR (Non-Af Amer) BUN/Creatinine Ratio (10-20) Glucose (70-99) mg/dl Lactate 2.1 H* (0.4-2.0) mmol/L Uric Acid (2.6-7.2) mg/dl Calcium (8.5-10.1) mg/dl Phosphorus (2.5-4.9) mg/dl Magnesium (1.8-2.4) mg/dl Total Bilirubin (0.2-1) mg/dl AST (15-37) U/L ALT (12-78) U/L Alkaline Phosphatase (45-117) U/L Lactate Dehydrogenase (87-241) U/L Total Creatine Kinase (39-308) U/L CK-MB (CK-2) (0.5-3.6) ng/ml CK/CKMB % Calc Troponin I (0-0.045) ng/ml C-Reactive Protein (0-0.29) mg/dl Total Protein (6.4-8.2) gm/dl Albumin (3.4-5.0) gm/dl Globulin (2.5-4.0) gm/dl Albumin/Globulin Ratio (0.9-2) Procalcitonin (0-0.5) ng/ml COVID-19 Eval Order COVID-19 PCR NEGATIVE (Negative) Hepatitis C Ab Screen (Neg) Imaging Data Radiologist's Impression: [place], [place] [phone] XRay Report Patient: TABBY MOODYAdmit Date: 03/12/20 MR#: [id number]: [address] [facility] Acct ID:[id number]: Date: 1950[facility] Zip: [place] [address] Age: 69Location: ED Sex: MRoom/Bed: Att Phy:Diagnosis: HAS URINATED IN 3 DAYS, FEVER, Charo Phy: [employer] MDService Date: 03/12/20 Fam Phy:Interpreting Phy: Lance Villasenor Admit Phy: Ordering Phy: Navjot Garber MD cc: ~ XR chest 1V portable HISTORY: 69 years-old Male SEPSIS acute sepsis COMPARISON: Chest CT 08/11/2015 TECHNIQUE: Portable AP view of the chest FINDINGS: Cardiac silhouette is mildly enlarged, unchanged. Mild linear subsegmental bibasilar opacities. No pneumothorax, pleural effusion or overt pulmonary edema. Degenerative changes of the shoulders and spine. Mild blunting of the right costophrenic angle. IMPRESSION: Linear bibasilar opacities suggest atelectasis. No airspace consolidation typical for pneumonia. ACT 112: Negative or not required by law. The above report was generated using voice recognition software. It may contain grammatical, syntax or spelling errors. Electronically signed by: Abiodun Villasenor M.D. 03/12/2020 1:25 PM Dictated: 03/12/20 1324 Transcribed: 03/12/20 1324 [facility] ABIEL Chavez [phone] CT Scan Report Patient: TABBY MOODYAdmit Date: 03/12/20 MR#: [id number]: [address] [facility]JU Acct ID:[id number]: Date: 1950City Zip: [place] [address] Age: 69Location: ED Sex: MRoom/Bed: Att Phy:Diagnosis: HAS URINATED IN 3 DAYS, FEVER, Charo Phy: Cash Pride MDService Date: 03/12/20 Fam Phy:Interpreting Phy: Johann Camargo MD Admit Phy: Ordering Phy: Navjot Garber MD cc: ~ CT OF THE ABDOMEN AND PELVIS WITHOUT CONTRAST CLINICAL HISTORY: Acute renal failure. COMPARISON STUDY: Right inguinal ultrasound August 04, 2015. TECHNIQUE: Axial images of the abdomen and pelvis were obtained without IV contrast. Images were reviewed in the axial, sagittal, and coronal planes. Automated exposure control was utilized for the study. A dose lowering technique was utilized adhering to the principles of ALARA. FINDINGS: Imaged portions of the lower chest demonstrate a small hiatal hernia. There is ascites within the hernia sac. Small right and trace left pleural effusions are noted. No pneumatosis, free air or portal venous gas is present. Evaluation of the abdomen and pelvis is suboptimal on this unenhanced exam. Moderate splenomegaly has developed since chest CT August 2015. There is periportal edema. There is evidence for volume overload with mesenteric infiltration and a small amount of ascites within the abdomen and pelvis. No hepatic lesions identified on this unenhanced exam. Unenhanced images of the adrenal glands, pancreas and right kidney are normal. A water attenuation lesion within the left renal pelvis was partially imaged on prior chest CT. This represents a parapelvic cyst. There is mild left collecting system dilatation. There are no ureteral calculi. Prostate is moderately enlarged. Mild bladder wall thickening is noted. Colonic diverticulosis is noted without evidence for acute diverticulitis. Note is made of numerous enlarged abdominal and pelvic lymph nodes, including mesenteric, retroperitoneal and left pelvic sidewall nodes. Index left pelvic sidewall lymph node on image 347 of 446 measures 2.3 x 1.5 cm. Index right common iliac node on image 252 measures 2.4 x 1.7 cm. Index mesenteric node on image 178 measures 2 x 1.4 cm. Or may be an additional enlarged left iliac node shown on axial image 339, suboptimally assessed on this unenhanced exam. There is no evidence for a bowel obstruction. There are no suspicious osseous lesions. IMPRESSION: 1. No urinary calculi. Mild left collecting system dilatation. Left renal parapelvic cyst. Moderate enlargement of the prostate. Mild bladder wall thickening. 2. Numerous ill-defined enlarged abdominal and pelvic lymph nodes that measure up to 2.4 x 1.7 cm. Interval development of moderate splenomegaly since prior chest CT August 11, 2015. These findings raise the possibility of a lym phoproliferative process such as lymphoma. 3. Evidence for volume overload with small right and trace left pleural effusions, small amount of abdominal and pelvic ascites, periportal edema and mesenteric infiltration. 4. No bowel obstruction. Colonic diverticulosis without evidence for acute diver ticulitis. ACT 112: Positive. There are findings on this exam that require communication between the performing entity and the patient following Patient Test Result Information Act ([place] Act 112) guidelines. Electronically signed by: Johann Camargo M.D. 03/12/2020 3:13 PM Dictated: 03/12/20 1453 Transcribed: 03/12/20 1453 ECG Data Attestation: I personally reviewed and interpreted this ECG as follows: Indication: + weakness Rate (beats per minute): 78 Rhythm: + normal sinus ECG Intervals/blocks: + Normal QT-c ECG [place]: no Left axis deviation and no Right axis deviation ECG ST segments: no ST depression and no ST elevation Comparison ECG Date: from (03/12/2020) Change: no significant change MDM Narrative Patient was seen and evaluated as above in room C6. Review was performed of nursing notes and vital signs. I did review pertinent previous visits and patient history. After obtaining a thorough history and physical examination the above work up was performed. -This is a 69-year-old male who presents emergency department complaining of hypotensive and febrile. Because of the patient being on chemotherapy a sepsis alert was immediately initiated and the patient was started on broad-spectrum antibiotics. He was given 30 mL's per kilogram of fluid. He was found to be in acute renal failure and is febrile neutropenic. He was sent for CAT scan the abdomen pelvis which was consistent with CLL. I did discuss the case with the hospitalist service who did agree to admit the patient. Patient is in agreement with the treatment plan. An order was placed for continuous cardiac monitoring. The monitor shows a rate of 100 with Normal SInus rhythm. The patient was evaluated during the global COVID-19 pandemic, and that diagnosis was suspected/considered upon their initial presentation. Their evaluation, treatment and testing was consistent with current guidelines for patients who present with complaints or symptoms that may be related to COVID- 19. Impression & Plan Neutropenic fever, CLL (chronic lymphocytic leukemia), Sepsis, Acute renal failure (ARF) Discharge Plan Visit Data Chief Complaint: Urinary Symptoms Stated Complaint: HAS URINATED IN 3 DAYS, FEVER, ED Provider: Navjot Garber Discharge Problem: Neutropenic fever, CLL (chronic lymphocytic leukemia), Sepsis, Acute renal failure (ARF) Patient Disposition: Admitted As Inpatient Discharge Instructions Interventions: ED Discharge Assessment Last Done: 03/12/20 17:14 Discharge Problem: Sepsis Qualifiers: Sepsis type: sepsis due to unspecified organism Sepsis acute organ dysfunction status: unspecified Qualified Code(s): A41.9 - Sepsis, unspecified organism Acute renal failure (ARF) Qualifiers: Acute renal failure type: unspecified Qualified Code(s): N17.9 - Acute kidney failure, unspecified
[2020-03-16] MEDS: LEVOTHYROXINE SODIUM 125 MCG TABLET PO SCH (06:20)
[2020-03-16 06:54] LABS: Hematocrit (blood only) 31.9 % (42-52); Hemoglobin 10.9 g/dL (14.0-18.0); Mean Corpuscular Hemoglobin 29.1 pg (25-34); Mean Corpuscular Hgb Conc 34.2 g/dL (32-36); Mean Corpuscular Volume 85.1 fL (80-100); Platelet Count 138 K/uL (130-400); RDW Coefficient of Variation 13.4 % (11.5-14.5); RDW Standard Deviation 41.8 fL (36.4-46.3); Red Blood Count 3.75 M/uL (4.7-6.1); White Blood Count 12.57 K/uL (4.8-10.8)
[2020-03-16 07:27] LABS: BUN Creatinine Ratio 20.2 (10-20); Calcium 8.6 mg/dl (8.5-10.1); Creatinine Clr Calc Pharmacy 36.7 ml/min; Est GFR (African American) 41.8; Est GFR (Non-African American) 36.1; Phosphorus 2.2 mg/dl (2.5-4.9); Potassium 3.6 mmol/L (3.5-5.1)
[2020-03-16 07:37] LABS: ALC (manual) 1.66 K/uL (1.2-3.4); ANC (manual) 8.26 K/uL (1.4-6.5); Basophils # (manual) 0.23 K/uL (0-0.2); Basophils % (manual) 1.8 %; Dohle Bodies 1+; Eosinophils # (manual) 0.44 K/uL (0-0.5); Eosinophils % (manual) 3.5 %; Lymphocytes # (manual) 1.66 K/uL (1.2-3.4); Lymphocytes % (manual) 13.2 %; Metamyelocytes # (manual) 0.33 K/uL (0-0); Metamyelocytes % (manual) 2.6 %; Monocytes # (manual) 1.55 K/uL (0.11-0.59); Monocytes % (manual) 12.3 %; Myelocytes # (manual) 0.11 K/uL (0-0); Myelocytes % (manual) 0.9 %; Neutrophils # (manual) 8.26 K/uL (1.4-6.5); Neutrophils % (manual) 65.7 %; Ovalocytes 1+; Tear Drop Cells 1+; Toxic Granulation 1+
[2020-03-16] MEDS: CIPROFLOXACIN / D5W 400 MG/200 ML BAG IV SCH ×2 (09:37→20:54)
[2020-03-16] MEDS: VITAMIN B COMPLEX TAB PO SCH (09:38)
[2020-03-16] MEDS: POLYETHYLENE (MIRALAX) 17 GM PACK PO SCH (09:38)
[2020-03-16] MEDS: FINASTERIDE 5 MG TAB PO SCH (09:38)
[2020-03-16] MEDS: DOCUSATE SODIUM 100 MG CAP PO SCH ×2 (09:38→20:53)
--- NOTE | 2020-03-16 14:05 | Hospitalist Progress Note ---
Date of Service March 16, 2020 Assessment & Plan (1) Neutropenic fever: 69 y/o M w/ hx of CLL on chemotherapy (follows with [facility] Allison), COPD, hypothyroidism who presented on 03/12/2020 with neutropenic fever. Bacteremia - elevated lactate 2.6 on admission - No clear source; no central line, no mediport - patient reported symptoms of urinary retention several days leading up to hospitalization, may be possible source but UA/UCx negative - Remains largely afebrile while hospitalized - Blood cx showed pansusceptible Pseudomonas - doing well on Ciprofloxacin 400 mg IV BID - Plan to continue IV abx for total of 14 days for now - ID consult placed today for further recs, in the setting of immunosuppression and unclear source of bacteremia CLL (Chronic Lymphocytic Leukemia - WBC up to 12.57 (03/16), 2/2 Neupogen (s/p treatment x3 days) - Discussed case with patient's oncology PA, Melonie Storm, on 03/13 - Continue to hold daily Venclexta 100mg (3 tablets) po daily - F/u with oncologist at [facility]. MARKEL - Cr 3.84 (03/12) --> 1.84 (03/16) - Ratio consistently >20/1 - Suspect pre-renal 2/2 dehydration, likely ATN component given extended high Cr despite adequate PO intake and hydration - Continue to encourage adequate PO intake - Continue to trend BMP Hemorrhoids - Patient using witch lefyt pads with minimal relief - Hydrocortisone cream prn BID ordered - Colace and Miralax for bowel regimen BPH with urinary obstruction - continue home doxazosin and finasteride HLD - held simvastatin 10mg po daily Hypothyroidism - continue home levothyroxine 125 mcg COPD - patient stable, continue to monitor FENGI: Dialysis Renal Diet DVT prophylaxis:SCDs Code status: DNR/DNI Dispo: med/surg with tele Admission and Anticipated Discharge Date Admission Date: March 12, 2020 Supervising Physician Co-Signing Physician Notes Attending attestation Pt seen and examined in concert with Dr. Walter. In agreement with the documented findings as noted in the resident documentation with any exceptions or additions as noted here. 69 y/o male h/o CLL (following with [facility] Allison), BPH, HLD p/w neutropenic fever Hemorrhoid still the bulk of complaint, though less so since stool regimen. No new infective complaints, f/c [Prev: on review of history, did have urinary retention for upwards of 2 days immediately prior to admission.] On examination, S1/S2 nl RRR no MCG. CTAB. Abd NT/ND BS+ve. [Prev: No apparent breaks in skin, rashes, areas of TTP. Hemorrhoid appears inflamed and not exquisitely TTP on evaluation. CNII-XII grossly intact. Oral apthous ulcers of the tongue and mucosa without surrounding TTP or erythema. No palpable cervical [employer] appreciated. Nl external ear examination without pain w/ tragus movement.] Bacteremia without apparent source - symptoms suggest urinary source but UA/UCx without pathology. Pansensitive Pseudomonas on Cipro with good response. ID consultation placed in the setting of immune suppression with unconfirmed source Neutropenia - s/p neupogen x 3 days - ANC continues to improve, WBC now elevated. Call placed to oncology ABIEL Yin) @ to update/coordinate, msg left. CLL - holding venetoclax, oncology as above MARKEL w/ likely underlying ATN - Continues to improve. encourage hydration. Monitor. Else see resident documentation as noted. Subjective No acute events overnight. Denies fever/chills, chest pain, shortness of breath, abdominal pain. Reports BMx1 with "pasty" character yesterday. Eating and urina ting well. Review of Systems Constitutional: as per Subjective / HPI Respiratory: as per Subjective / HPI; no cough Cardiovascular: as per Subjective / HPI; no palpitations Gastrointestinal: as per Subjective / HPI; no nausea and no vomiting Physical Exam Constitutional: WD/WN, vitals as above Respiratory: normal respiratory effort, lungs clear to auscultation Cardiovascular: RRR, no murmur, no edema Gastrointestinal (Abdomen): normal bowel sounds, soft, nontender, no hepatosplenomegaly Results & Data Results & Data ([facility]) Vital Signs (Past 12 Hours) Vital Signs Temp Pulse Pulse Resp BP Pulse Ox 03/16/20 12:00 36.6 C 63 16 133/82 98 03/16/20 08:00 69 03/16/20 07:13 36.6 C 60 16 124/67 97 03/16/20 03:41 36.6 C 67 16 117/70 97 Resident Activity Tracking Resident Involvement: Resident Care Provided Care Provided: Adult [facility]
[2020-03-16] MEDS: DOXAZosin MESYLATE 4 MG TAB PO SCH (20:53)
[2020-03-17] MEDS: LEVOTHYROXINE SODIUM 125 MCG TABLET PO SCH (05:50)
[2020-03-17 09:30] LABS: Hematocrit (blood only) 34.5 % (42-52); Hemoglobin 11.4 g/dL (14.0-18.0); Mean Corpuscular Hemoglobin 28.4 pg (25-34); Mean Platelet Volume 9.6 fL (7.4-10.4); Platelet Count 162 K/uL (130-400); RDW Coefficient of Variation 13.4 % (11.5-14.5); RDW Standard Deviation 42.7 fL (36.4-46.3); Red Blood Count 4.01 M/uL (4.7-6.1); White Blood Count 13.07 K/uL (4.8-10.8)
[2020-03-17 09:50] LABS: BUN Creatinine Ratio 16.9 (10-20); Calcium 8.8 mg/dl (8.5-10.1); Creatinine Clr Calc Pharmacy 40.3 ml/min; Dohle Bodies 1+; Eosinophils # (manual) 0.12 K/uL (0-0.5); Eosinophils % (manual) 0.9 %; Est GFR (Non-African American) 40.6; Hypogranular Neutrophils 1+; Lymphocytes % (manual) 6.1 %; Metamyelocytes # (manual) 0.46 K/uL (0-0); Metamyelocytes % (manual) 3.5 %; Monocytes # (manual) 0.68 K/uL (0.11-0.59); Monocytes % (manual) 5.2 %; Myelocytes # (manual) 0.12 K/uL (0-0); Myelocytes % (manual) 0.9 %; Neutrophils % (manual) 83.4 %; Ovalocytes 1+; Potassium 3.8 mmol/L (3.5-5.1); Tear Drop Cells 1+
[2020-03-17] MEDS: POLYETHYLENE (MIRALAX) 17 GM PACK PO SCH (09:50)
[2020-03-17] MEDS: CIPROFLOXACIN / D5W 400 MG/200 ML BAG IV SCH (09:50)
[2020-03-17] MEDS: FINASTERIDE 5 MG TAB PO SCH (09:52)
[2020-03-17] MEDS: DOCUSATE SODIUM 100 MG CAP PO SCH (09:52)
[2020-03-17] MEDS: VITAMIN B COMPLEX TAB PO SCH (09:52)
--- NOTE | 2020-03-17 16:41 | Discharge Summary ---
Date of Service March 17, 2020 Admission HPI Per Admitting Provider 69 yo with h/o CLL, and receiving treatment. complainting of fever, low enegry since Tuesday. He reports intermittent fever on Tuesday at 102F and Tuesday at 101F. He repprts both fevers subisded on their own. He also reports having not urinated since Tuesday despite drinking 56 ounces of water at minimum a day. Once his was aware that he had not urinated he was brought in to the ER. Admission Exam Per Admitting Provider Constitutional: WD/WN, vitals as above Eyes: PERRL, conjunctivae normal, anicteric sclerae ENMT: external ear and nose normal, oropharynx normal Neck: trachea midline, no thyromegaly Respiratory: normal respiratory effort, lungs clear to auscultation Cardiovascular: RRR, no murmur, no edema Gastrointestinal (Abdomen): normal bowel sounds, soft, nontender, no hepatosplenomegaly Musculoskeletal: no cyanosis or clubbing, extremities motor strength 5/5 Neurologic: patellar DTR's 2+ bilat, sensation intact Psychiatric: A+Ox3, euthymic affect Lymphatic: no cervical or axillary lymphadenopathy Principal Diagnosis Bacteremia, MARKEL, CLL Discharge Exam General: Alert, oriented. No acute distress, sitting up in bed Skin: Red discoloration noted in right arm antecubital fossa at previous IV site Psych: Appropriate mood and affect Neuro: No gross deficits HEENT: NC/AT, EOMI, oropharynx moist. Chest: Nontender to palpation. CV: RRR, Normal s1, s2. No murmurs appreciated Resp: Breath sounds clear bilaterally, no increased effort of breathing. No crackles/rhonchi/rales. Abdomen: Soft, nontender, nondistended. No guarding. No organomegaly appreciated. Extremities: No edema in lower extremities bilaterally. Discharge Data Allergies Allergy/AdvReac Type Severity Reaction Status Date / Time almond Allergy Mild dry mouth Verified 01/16/20 10:55 Consultations 03/12/20 14:10 ED Decision to Admit Stat 03/16/20 11:08 Consult Infectious Diseases Routine Ordered Studies 03/12/20 13:53 CT abd pelvis wo con Stat Hospital Course (1) Neutropenic fever: 69 y/o M w/ hx of CLL on chemotherapy (follows with [facility] Allison), COPD, hypothyroidism who presented on 03/12/2020 with neutropenic fever. Bacteremia - elevated lactate 2.6 on admission - No clear source; no central line, no mediport - patient reported symptoms of urinary retention several days leading up to hospitalization, may be possible source but UA/UCx negative - Remains largely afebrile while hospitalized - Blood cx showed pansusceptible Pseudomonas - treated with Ciprofloxacin 400 mg IV BID for 2 days, discharged on PO cipro 500mg BID for additional 12 days. - Plan to continue IV abx for total of 14 days - ID consult placed-unsure source of bacteremia, treatment as above. CLL (Chronic Lymphocytic Leukemia - WBC up to 12.57 (03/16), 2/2 Neupogen (s/p treatment x3 days) - Discussed case with patient's oncology PA, Melonie Storm, on 03/13 - Continue to hold daily Venclexta 100mg po daily even after discharge until f/u with oncologist or completion of abx course, whichever is sooner. - F/u with oncologist at [facility]. MARKEL - Cr 3.84 (03/12) --> 1.84 (03/16) -->1.67 (day of discharge) -baseline <1.0 in January 2020 - Ratio consistently >20/1 - Suspect pre-renal 2/2 dehydration, likely ATN component given extended high Cr despite adequate PO intake and hydration - Continue to encourage adequate PO intake- 60-70 ounces daily of fluid - Recommend f/u BMP with PCP later this week (ideally by 03/20/2020) Hemorrhoids - Patient using witch lefty pads with minimal relief - Hydrocortisone cream prn BID - Colace and Miralax for bowel regimen -PCP f/u BPH with urinary obstruction - continue home doxazosin and finasteride HLD - continue simvastatin 10mg po daily Hypothyroidism - continue home levothyroxine 125 mcg COPD -stable Total Time Total Time Spent Total Time Spent (In Minutes): <30 Discharge Plan Discharge Items Patient Disposition: Home - Self-Care Reason For Visit: SEPSIS Discharge Diagnosis: Bacteremia, MARKEL Activity: Per Instructions section Non-emergency contact: Primary Care Provider and Oncologist Call non-emergency contact if: you have any medication questions, your symptoms worsen and you have a fever Follow-up/Referrals: Micah Pride MD [Primary Care Provider] - Diet: Regular Addtl Attending Provider Instructions: Mr. Cope, you are being discharged. Please consider the following concerning what you were treated for here. Bacteremia -You had bacteria in your blood and you were treated with 2 days worth of IV antibiotics in the hospital. You are being discharged with the same antibiotic that you can take by mouth. Please take the ciprofloxacin 500mg twice a day for the next 12 days. Follow up with your primary care provider. Acute Kidney Injury -Your kidney numbers were elevated while you were in the hospital but it improved during your stay. We recommend that you continue to take in 60-70 ounces of water/fluids DAILY after leaving the hospital. This will help with keeping your kidney numbers down. We recommend that you follow up with your primary care doctor during the next week, ideally by Mar 20, so that your kidney function can be re-checked at that time to ensure that you are within the normal range. CLL -This is a known diagnosis to you. We stopped your medication Venclexta while in the hospital per the recommendations of your oncologist at [facility]. We recommend that you DO NOT take your chemotherapy medications again until you have completed antibiotic treatment, or have followed up with your oncologist, whichever is sooner. It was a pleasure taking care of you during your stay here! Pending Studies at Discharge: No Stand-Alone Forms: [facility] TrialPay, Smoking Cessation Medications and DC Order Prescriptions: New ciprofloxacin HCl 500 mg tablet 500 mg PO BID 12 Days Qty: 24 RF: 0 Continued finasteride 5 mg tablet 5 mg PO DAILY Qty: 90 RF: 4 simvastatin 10 mg tablet 10 mg PO DAILY Qty: 30 RF: 5 levothyroxine 125 mcg tablet 125 mcg PO DAILY Qty: 90 RF: 3 vitamin B complex [B Complex-Vitamin B12] tablet 1 tab PO DAILY Qty: 30 RF: 0 doxazosin 4 mg tablet 4 mg PO DAILY Qty: 90 RF: 3 Discontinued venetoclax 100 mg tablet 400 mg PO DAILY 300 Days Qty: 1200 RF: 0 Gazyva 1,000 mg/40 mL Solution 0 mg IV Q4WK RF: 0 Discharge Orders: Discharge Order (Routine); Ordered 03/17/20 Ordered By: Lisa Brooke/Other Patient Handouts: Neutropenia, Sepsis Admission Data Admit Date/Time: 03/12/20 16:10 Attending Provider: Allen North Admit Provider: Elvin Junior Primary Care Provider: Micah Pride Other Providers: Elvin Junior ; Prince Harris ; Maren Rowell ; Elia Langston I. ; Eric Manzano II ; Ronit Hackett ; Roger Ferrari ; Micah Kan Other Interventions: Discharge Summary Assessment (RN) Last Done: 03/17/20 17:20 Supervising Physician Co-Signing Physician Notes I personally examined the patient and verified all dorado points of history and exam, discussed case, and agree with decision making with Dr Hartman. feeling better feels up to going home vitals noted nad heent nc at mmm breathing unlabored no accessory muscles good effort skin no rashes no pallor or icterus neuro no focal deficits R arm mild IV infiltration no other focal lesions pseudomonas bacteremia - in the context of immunocompromise related to CLL and treatment - now stable for PO cipro and home. complete 14 days. otherwise as above MARKEL - improving. encouraged ongoing PO fluids since he's been improving without IV fluids. repeat BMP ~2-3 days. stable for home Resident Activity Tracking Resident Involvement: Resident Care Provided Care Provided: Adult Hospital Medicine
--- NOTE | 2020-03-17 18:55 | Billing Data ---
Date of Service March 17, 2020 Coding Level of Care Code D/C Day Management <30 mins
== END 2020-03-17 18:36 | disposition home or self-care (01) | DRG 871 ==
LOC: ED 12:27 → SUATTDRO 16:10 → 2S 16:10